=== PATIENT | male | born 1935 | race Caucasian/White ===

== ENCOUNTER 2016-11-07 11:30 | Emergency (ER) | payer OTHER ==
[~2016-11-07] VITALS: Ht 188 cm; Wt 116.9 kg
[~2016-11-07 11:30] MED LIST: ASPEC325 PO; CARB1SOL8 OTB; FLUT0.0529 NAE
[2016-11-07 11:33] VITALS: TEMP 36.4; Ht 188 cm; Wt 116.9 kg
[2016-11-07] MEDS ORDERED: ONDANSETRON INJ 2 MG/ML 2 ML VIAL IV STA (12:04)
[2016-11-07] MEDS ORDERED: SODIUM CHLORIDE 0.9% 1000ML 500 ML IV STA (12:04)
[2016-11-07] MEDS ORDERED: SODIUM CHLORIDE 0.9% 1000ML 1,000 ML IV STA (12:04)
[2016-11-07 12:49] LABS: BASO % 0.4 %; BASO ABS # 0.03 K/uL (0-0.2); COMPLETE YES; EOS % 0.8 %; HEMATOCRIT 37.9 % (42-52); IG% 0.3 %; LYMPH % 21.4 %; LYMPH ABS # 1.52 K/uL (1.2-3.4); MEAN CELL VOLUME 77.2 fL (80-100); MEAN CORPUSCULAR HEMOGLOBIN 25.3 pg (25-34); MEAN CORPUSCULAR HGB CONC 32.7 g/dl (32-36); NEUT % 67.1 %; PLATELET COUNT 296 K/uL (130-400); RED BLOOD COUNT 4.91 M/uL (4.7-6.1); WHITE BLOOD COUNT 7.11 K/uL (4.8-10.8)
[2016-11-07 13:10] LABS: BUN/CREATININE RATIO 11.2 (10-20); CREATININE 1.3 mg/dl (0.60-1.40)
[2016-11-07 13:11] LABS: URINE APPEARANCE CLEAR (CLEAR); URINE BILIRUBIN NEG (NEG); URINE COLOR YELLOW; URINE EPITHELIAL CELL AUTO >30 /lpf (0-5); URINE NITRITE NEG (NEG); URINE SPECIFIC GRAVITY 1.013 (1.000-1.030); UROBILINOGEN NEG (NEG); ZZUR CULT IF INDIC CLEAN CATCH YES
[2016-11-07 13:31] LABS: MANUAL MICROSCOPIC REQUIRED? NO; REVIEW REQ? YES
--- NOTE | 2016-11-07 15:49 | DIAGNOSTIC IMAGING REPORT ---
CT SCAN OF THE ABDOMEN AND PELVIS WITH IV CONTRAST CLINICAL HISTORY: Lower abdominal pain. COMPARISON STUDY: No priors. TECHNIQUE: Following the IV administration of 93 cc of Optiray 320, CT scan of the abdomen and pelvis is performed from the lung bases to the proximal femora. Images are reviewed in the axial, sagittal, and coronal planes. IV contrast was administered without complication. Automated dose control exposure was utilized. CT DOSE: 1388.00 mGy.cm FINDINGS: Lung bases: The heart is enlarged and without pericardial effusion. Pacemaker leads are noted. Emphysematous change is suspected. There is dependent atelectasis. The lung bases are otherwise clear. There is a tiny hiatal hernia. Liver: The contrast-enhanced liver is normal in size and contour. The liver demonstrates diffusely diminished attenuation consistent with hepatic steatosis. There is mild central intrahepatic biliary ductal dilatation. The hepatic veins and portal veins are patent. A 1.5 cm cyst is noted in the left lobe. Gallbladder: Surgically absent noting clips in the gallbladder fossa. Spleen: Normal in size and attenuation. Pancreas: There is moderate fatty atrophy of the pancreas. Adrenal glands: Unremarkable. Kidneys: The contrast enhanced kidneys are atrophic and without hydronephrosis. The kidneys enhance symmetrically. There are numerous bilateral parapelvic cysts, left greater than right. A 2.0 cm exophytic cyst arises from the left lower pole. Additional subcentimeter cortical hypodensities also likely represent cysts but are too small for definitive characterization. Abdominal vasculature: The abdominal aorta is normal in course and caliber noting advanced atherosclerotic calcification. Bowel: There are postoperative changes from right hemicolectomy with ileocolic anastomosis. No bowel obstruction is seen. There are matted loops of mildly thick-walled small bowel with surrounding perienteric stranding and trace interloop fluid seen in the left upper quadrant. This is best seen on axial image #197. There is no pneumatosis intestinalis or portal venous gas. The appendix is surgically absent. Peritoneum: There is no intraperitoneal free air or abdominal ascites. There is a small fat-containing umbilical hernia. Lymphadenopathy: None. Pelvic viscera: The prostate gland is mildly enlarged, measuring up to 5 cm in transverse diameter. The bladder is normal as visualized. There is a moderate fat-containing left inguinal hernia. Trace free fluid is present in the pelvis. Skeletal structures: No lytic or blastic lesions are seen. IMPRESSION: 1. There are matted loops of proximal small bowel in the left upper quadrant which appear mildly thick walled and demonstrates surrounding inflammatory stranding as well as trace interloop fluid. The appearance is suggests a nonspecific enteritis. This could be on an infectious, inflammatory, or ischemic basis. There is no pneumatosis intestinalis or portal venous gas identified. 2. There are postoperative changes from right hemicolectomy with ileocolic anastomosis. No bowel obstruction is seen. 3. Cardiomegaly. 4. Hepatic steatosis. 5. There is trace free fluid in the pelvis, likely on a reactive basis. 6. Additional changes as above. Electronically signed by: Aurelio Wharton M.D. 11/07/2016 3:47 PM Dictated Date/Time: 11/07/2016 3:28 PM
[2016-11-07 16:29] VITALS: BP 123/76; PULSE 86; O2SAT 96
--- NOTE | 2016-11-07 17:27 | EMERGENCY ROOM VISIT NOTE ---
History Report prepared by Sukh: Sher Lane Under the Supervision of: Dr. Aurelio Friedman M.D. First contact with patient: 11:59 Chief Complaint: ABDOMINAL PAIN Stated Complaint: PAIN IN LOWER LEFT STOMACH Nursing Triage Summary: Pt stated that over the last 2 days he has been experincing left lower quadrant pain. The pt stated that the pain is a dull constant pain about a 4 out of 10. Pt stated that the pain worsens after eating and while laying flat. Pt states that when he walks or stretches that the pain lessens. The pt stated that it feels like a hernia he had in the past. Pt had a normal bowel movement this morning and denies N/V. No problems with urination. Pt had been on an antibiotic over the past month and stated that he had dark colored stool while taking the antibiotic. Pt called PCP who referred him to the ED. History of Present Illness The patient is an 81 year old male who presents to the Emergency Room with complaints of intermittent left lower quadrant pain for the past three days. The pain is rated 4/10 in severity. The patient had a bowel movement today that was normal. He denies any urinary symptoms. The patient called Dr. Crane, who referred him to the ED for a CT scan. The patient has never been diagnosed with diverticulosis or diverticulitis. He has a history of polyps s/p colonic resection, which included his appendix. He also has a history of cholecystectomy. The patient has colonoscopies every five years. He takes baby aspirin but is not on any major blood thinners. He denies any history of kidney stones. Source of History: patient Onset: three days Position: abdomen (LLQ) Symptom Intensity: 4/10 Timing: intermittent Associated Symptoms: No diarrhea, No urinary symptoms Review of Systems See HPI for pertinent positives & negatives. A total of 10 systems reviewed and were otherwise negative. Past Medical & Surgical Surgical Problems: (1) History of herniorrhaphy (2) S/P cholecystectomy (3) S/P colon resection Family History Cancer Diabetes mellitus Hypertension Social History Smoking Status: Former Smoker Marital Status: Housing Status: lives with family Current/Historical Medications Scheduled Amlodipine (Norvasc), 5 MG PO DAILY Aspirin (Aspirin), 325 MG PO BID Cholecalciferol (Vitamin D 1000 Unit), 1,000 INTER.UNIT PO QAM Lisinopril (Prinivil), 20 MG PO BID Metformin Hcl (Glucophage), 1,000 MG PO BID Pantoprazole (Protonix), 40 MG PO QAFTERNOON Pioglitazone Hcl (Actos), 45 MG PO DAILY Simvastatin (Zocor), 20 MG PO HS Sitagliptin (Januvia), 100 MG PO QAM Scheduled PRN Eucerin (Eucerin), 1 APPL TOP Fluticasone Propionate (Nasal) (Flonase), 2 SPRAYS AGUEDA DAILY PRN Allergies Coded Allergies: Sulfa Drugs (Verified Allergy, Mild, HIVES, 11/07/16) Physical Exam Vital Signs Date Time Temp Pulse Resp B/P Pulse Ox O2 Delivery O2 Flow Rate FiO2 11/07/16 16:29 86 16 123/76 96 Room Air 11/07/16 15:40 76 18 111/59 94 Room Air 11/07/16 13:07 76 20 104/63 96 Room Air 11/07/16 11:33 36.4 98 18 155/79 94 Room Air Physical Exam GENERAL: Patient is in no acute distress. HEENT: No acute trauma, normocephalic atraumatic, mucous membranes moist, no nasal congestion, no scleral icterus. NECK: No stridor, no adenopathy, no meningismus, trachea is midline. LUNGS: Clear to auscultation bilaterally, no wheeze, no rhonchi, breath sounds equal. HEART: Without murmurs gallops or rubs, regular rate and rhythm. ABDOMEN: Soft, mildly tender to the left lower quadrant, bowel sounds positive, no hernias, no peritonitis. EXTREMITIES: No cyanosis or edema, full range of motion of all the joints without pain or difficulty, no signs for acute trauma. NEUROLOGIC: Oriented x 3, no acute motor or sensory deficits, no focal weakness. SKIN: No rash, no jaundice, no diaphoresis. Medical Decision & Procedures ER Provider Diagnostic Interpretation: CT results as stated below per my review and radiologist interpretation: CT SCAN OF THE ABDOMEN AND PELVIS WITH IV CONTRAST CLINICAL HISTORY: Lower abdominal pain. COMPARISON STUDY: No priors. TECHNIQUE: Following the IV administration of 93 cc of Optiray 320, CT scan of the abdomen and pelvis is performed from the lung bases to the proximal femora. Images are reviewed in the axial, sagittal, and coronal planes. IV contrast was administered without complication. Automated dose control exposure was utilized. CT DOSE: 1388.00 mGy.cm FINDINGS: Lung bases: The heart is enlarged and without pericardial effusion. Pacemaker leads are noted. Emphysematous change is suspected. There is dependent atelectasis. The lung bases are otherwise clear. There is a tiny hiatal hernia. Liver: The contrast-enhanced liver is normal in size and contour. The liver demonstrates diffusely diminished attenuation consistent with hepatic steatosis. There is mild central intrahepatic biliary ductal dilatation. The hepatic veins and portal veins are patent. A 1.5 cm cyst is noted in the left lobe. Gallbladder: Surgically absent noting clips in the gallbladder fossa. Spleen: Normal in size and attenuation. Pancreas: There is moderate fatty atrophy of the pancreas. Adrenal glands: Unremarkable. Kidneys: The contrast enhanced kidneys are atrophic and without hydronephrosis. The kidneys enhance symmetrically. There are numerous bilateral parapelvic cysts, left greater than right. A 2.0 cm exophytic cyst arises from the left lower pole. Additional subcentimeter cortical hypodensities also likely represent cysts but are too small for definitive characterization. Abdominal vasculature: The abdominal aorta is normal in course and caliber noting advanced atherosclerotic calcification. Bowel: There are postoperative changes from right hemicolectomy with ileocolic anastomosis. No bowel obstruction is seen. There are matted loops of mildly thick-walled small bowel with surrounding perienteric stranding and trace interloop fluid seen in the left upper quadrant. This is best seen on axial image #197. There is no pneumatosis intestinalis or portal venous gas. The appendix is surgically absent. Peritoneum: There is no intraperitoneal free air or abdominal ascites. There is a small fat-containing umbilical hernia. Lymphadenopathy: None. Pelvic viscera: The prostate gland is mildly enlarged, measuring up to 5 cm in transverse diameter. The bladder is normal as visualized. There is a moderate fat-containing left inguinal hernia. Trace free fluid is present in the pelvis. Skeletal structures: No lytic or blastic lesions are seen. IMPRESSION: 1. There are matted loops of proximal small bowel in the left upper quadrant which appear mildly thick walled and demonstrates surrounding inflammatory stranding as well as trace interloop fluid. The appearance is suggests a nonspecific enteritis. This could be on an infectious, inflammatory, or ischemic basis. There is no pneumatosis intestinalis or portal venous gas identified. 2. There are postoperative changes from right hemicolectomy with ileocolic anastomosis. No bowel obstruction is seen. 3. Cardiomegaly. 4. Hepatic steatosis. 5. There is trace free fluid in the pelvis, likely on a reactive basis. 6. Additional changes as above. Electronically signed by: Aurelio Wharton M.D. 11/07/2016 3:47 PM Laboratory Results 11/07/16 12:30 Red Blood Count 4.91, Mean Corpuscular Volume 77.2, Mean Corpuscular Hemoglobin 25.3, Mean Corpuscular Hemoglobin Concent 32.7, Mean Platelet Volume 10.0, Neutrophils (%) (Auto) 67.1, Lymphocytes (%) (Auto) 21.4, Monocytes (%) (Auto) 10.0, Eosinophils (%) (Auto) 0.8, Basophils (%) (Auto) 0.4, Neutrophils # (Auto ) 4.77, Lymphocytes # (Auto) 1.52, Monocytes # (Auto) 0.71, Eosinophils # (Auto ) 0.06, Basophils # (Auto) 0.03 11/07/16 12:30 Test 11/07/16 12:30 11/07/16 12:38 White Blood Count 7.11 K/uL (4.8-10.8) Red Blood Count 4.91 M/uL (4.7-6.1) Hemoglobin 12.4 g/dL (14.0-18.0) Hematocrit 37.9 % (42-52) Mean Corpuscular Volume 77.2 fL (80-100) Mean Corpuscular Hemoglobin 25.3 pg (25-34) Mean Corpuscular Hemoglobin Concent 32.7 g/dl (32-36) Platelet Count 296 K/uL (130-400) Mean Platelet Volume 10.0 fL (7.4-10.4) Neutrophils (%) (Auto) 67.1 % Lymphocytes (%) (Auto) 21.4 % Monocytes (%) (Auto) 10.0 % Eosinophils (%) (Auto) 0.8 % Basophils (%) (Auto) 0.4 % Neutrophils # (Auto) 4.77 K/uL (1.4-6.5) Lymphocytes # (Auto) 1.52 K/uL (1.2-3.4) Monocytes # (Auto) 0.71 K/uL (0.11-0.59) Eosinophils # (Auto) 0.06 K/uL (0-0.5) Basophils # (Auto) 0.03 K/uL (0-0.2) RDW Standard Deviation 46.0 fL (36.4-46.3) RDW Coefficient of Variation 16.4 % (11.5-14.5) Immature Granulocyte % (Auto) 0.3 % Immature Granulocyte # (Auto) 0.02 K/uL (0.00-0.02) Anion Gap 8.0 mmol/L (3-11) Est Creatinine Clear Calc Drug Dose 61.6 ml/min Estimated GFR () 59.7 Estimated GFR (Non- 51.5 BUN/Creatinine Ratio 11.2 (10-20) Calcium Level 9.0 mg/dl (8.5-10.1) Total Bilirubin 0.6 mg/dl (0.2-1) Aspartate Amino Transf (AST/SGOT) 15 U/L (15-37) Alanine Aminotransferase (ALT/SGPT) 19 U/L (12-78) Alkaline Phosphatase 63 U/L (45-117) Total Protein 7.1 gm/dl (6.4-8.2) Albumin 3.5 gm/dl (3.4-5.0) Globulin 3.6 gm/dl (2.5-4.0) Albumin/Globulin Ratio 1.0 (0.9-2) Lipase 119 U/L (73-393) Urine Color YELLOW Urine Appearance CLEAR (CLEAR) Urine pH 5.0 (4.5-7.5) Urine Specific [place] 1.013 (1.000-1.030) Urine Protein TRACE (NEG) Urine Glucose (UA) NEG (NEG) Urine Ketones NEG (NEG) Urine Occult Blood 3+ (NEG) Urine Nitrite NEG (NEG) Urine Bilirubin NEG (NEG) Urine Urobilinogen NEG (NEG) Urine Leukocyte Esterase MODERATE (NEG) Urine WBC (Auto) >30 /hpf (0-5) Urine RBC (Auto) >30 /hpf (0-4) Urine Hyaline Casts (Auto) 5-10 /lpf (0-5) Urine Epithelial Cells (Auto) >30 /lpf (0-5) Urine Bacteria (Auto) NEG (NEG) Urine Renal Epithelial Cells /lpf (0-5) Laboratory results reviewed by me. Medications Administered Medications (Trade) Dose Ordered Sig/Kobi Route Start Time Stop Time Status Last Admin Dose Admin Sodium Chloride (Nss 1000ml) 500 ml @ 999 mls/hr Q31M STAT IV 11/07/16 12:04 11/07/16 12:34 DC 11/07/16 12:04 999 MLS/HR Ondansetron HCl 4 mg 4 mg NOW STAT IV 11/07/16 12:04 11/07/16 12:08 DC 11/07/16 12:04 4 MG Sodium Chloride (Nss 1000ml) 1,000 ml @ 200 mls/hr Q5H STAT IV 11/07/16 12:04 11/07/16 17:03 DC 11/07/16 13:05 200 MLS/HR ED Course 1204: The patient was evaluated in room C12b. A complete history and physical exam was performed. 1204: NSS 1000 ml @ 200 mls/hr, Zofran 4 mg IV, NSS 500 ml @ 999 mls/hr. 1610: Discussed the CT findings with Dr. Washington, Surgeon. The patient can go home if he is feeling well. 1615: Reassessed the patient. Discussed the findings with him. He verbalized understanding and agreement of the treatment plan. The patient is ready for discharge. Medical Decision Differential diagnosis includes diverticulitis, hernia, bowel obstruction, musculoskeletal pain, renal colic, UTI. There is no leukocytosis or concerning anemia. No significant electrolyte abnormality, kidney failure, hepatitis or pancreatitis. Urinalysis shows contamination, urine culture is pending. Abdominal and pelvis CT shows some inflamed loops of bowel consistent with a possible enteritis. There is no bowel obstruction, no abscess, no diverticulitis. Patient was given IV saline, IV Zofran, he did not want anything for pain. He is hungry and would like to eat, he is in no significant distress. On exam, there was no peritonitis. The patient was not febrile or toxic. I discussed the case with the on-call surgeon. The patient is being discharged on a simple, bland diet. [id number] pain medication was advised. He will see his doctor in follow-up in a few days. He can return here for escalating pain, fever or vomiting. The cause for the CT findings is not completely clear but I do think the findings could explain his discomfort. Consults Time Called: 1605 Consulting Physician: Dr. Washington, Surgeon Returned Call: [phone]: Discussed the CT findings with Dr. Washington, Surgeon. The patient can go home if he is feeling well. Impression Primary Impression: LLQ abdominal pain Scribe Attestation The scribe's documentation has been prepared under my direction and personally reviewed by me in its entirety. I confirm that the note above accurately reflects all work, treatment, procedures, and medical decision making performed by me. Departure Information Dispostion Home / Self-Care Referrals Breezy Crane III, M.D. (PCP) Forms HOME CARE DOCUMENTATION FORM, IMPORTANT VISIT INFORMATION Patient Instructions My [facility] Additional Instructions bland diet---crackes, toast, soap, gatorade tylenol for pain rest return for fever, worsening pain, vomiting follow with Dr. Crane thursday or thursday lab testing and imaging today was ok
[2017-05-24] MEDS ORDERED: SKINCRE34 TOP (09:22)
[2017-05-24] MEDS ORDERED: METF1000 PO (09:22)
[2017-05-24] MEDS ORDERED: ACT/45 PO (09:22)
[2017-05-24] MEDS ORDERED: PANT1TAB48 PO (09:22)
[2017-05-24] MEDS ORDERED: CHOL100027 PO (09:22)
[2017-05-24] MEDS ORDERED: LISI20TA3 PO (09:22)
[2017-05-24] MEDS ORDERED: SITA1TAB27 PO (09:22)
[2017-05-24] MEDS ORDERED: SIMV20TA5 PO (09:22)
[2017-05-25] MEDS ORDERED: CEPH500C2 PO (09:51)
[2017-05-25] MEDS ORDERED: RXC5 PO (09:51)
== END 2016-11-07 16:40 | disposition home or self-care (01) ==
LOC: C.EDB 11:31 → C.EDC 16:40
DX: R10.32 Left lower quadrant pain (principal); Z86.010 Personal history of colon polyps; Z87.891 Personal history of nicotine dependence; Z90.49 Acquired absence of other specified parts of digestive tract; Z98.890 Other specified postprocedural states; Z82.49 Family history of ischemic heart disease and other diseases of the circulatory system; Z83.3 Family history of diabetes mellitus; Z79.82 Long term (current) use of aspirin

== ENCOUNTER 2017-05-24 14:06 | Observation (INO) | payer OTHER ==
[~2017-05-24] VITALS: Ht 188 cm; Wt 106.0 kg
[~2017-05-24 14:06] MED LIST changes: +ACT/45 PO; -CARB1SOL8 OTB; +CHOL100027 PO; +LISI20TA3 PO; +METF1000 PO; +PANT1TAB48 PO; +SIMV20TA5 PO; +SITA1TAB27 PO; +SKINCRE34 TOP
[2017-05-24] MEDS ORDERED: AMLO-110 PO (14:53)
[2017-05-24 14:59] LABS: BASO % 0.2 %; BASO ABS # 0.02 K/uL (0-0.2); COMPLETE YES; EOS % 2.2 %; IG% 0.2 %; LYMPH % 35.2 %; LYMPH ABS # 2.86 K/uL (1.2-3.4); MEAN CELL VOLUME 75.6 fL (80-100); MEAN CORPUSCULAR HEMOGLOBIN 24.4 pg (25-34); MEAN CORPUSCULAR HGB CONC 32.2 g/dl (32-36); NEUT % 53.2 %; PLATELET COUNT 301 K/uL (130-400); RED BLOOD COUNT 4.76 M/uL (4.7-6.1); WHITE BLOOD COUNT 8.12 K/uL (4.8-10.8)
[2017-05-24 15:10] LABS: BUN/CREATININE RATIO 11.7 (10-20); CALCIUM 8.8 mg/dl (8.5-10.1); CREATININE 1.3 mg/dl (0.60-1.40); POTASSIUM 4.3 mmol/L (3.5-5.1)
--- NOTE | 2017-05-24 15:10 | EMERGENCY ROOM VISIT NOTE ---
ED Visit Note First contact with patient: 14:18 Chief complaint: Left thumb and left long finger lacerations HPI: This 82-year-old white male presents for evaluation of a laceration on his left long finger and his left thumb. The patient was using a table saw today and accidentally put his hand against the blade. He sustained a partial amputation of his thumb at the MCP joint. He also sustained a small laceration over the dorsum of his long finger at the distal phalanx. Bleeding was controlled with pressure. He notes numbness in the thumb. No numbness, tingling, or loss of motion in the long finger. No other complaints. Left hand dominant. Tetanus is believed to be up-to-date. Pain is 6/10. His accompanies him today. Supplemental sheet was reviewed and signed. Previous surgeries: Cholecystectomy, pacemaker placement, total knee replacement , herniorrhaphy Medical history: Significant for diabetes, atrial fibrillation, heart disease, hypertension, osteoarthritis, and easy bruising Current Medications: Reviewed and filed in patient's chart. No blood thinners other than aspirin. Allergies: Sulfa drugs Tetanus: Within 10 years Family History: Significant for heart disease, hypertension, and gallbladder disease. Parents are . Social History: Retired. . No tobacco use, no EtOH use. REVIEW OF SYSTEM: HEENT: No dizziness, visual problems, hearing loss, or tinnitus. There is no difficulty swallowing and no oral lesions are present. LYMPH: No adenopathy. PULMONARY: No cough, shortness of breath, sputum production or hemoptysis. CARDIOVASCULAR: No chest pain, shortness of breath or peripheral edema. GASTROINTESTINAL: No diarrhea, constipation, nausea, vomiting, or abdominal pain. GENITOURINARY: No dysuria, frequency, urgency or nocturia. NEUROLOGIC: No weakness, muscle tenderness, epilepsy or history of neurological problems. MUSCULOSKELETAL: No history of joint tenderness/swelling. Positive history of arthritis and arthralgias. SKIN: No rashes or lesions. PSYCHIATRIC: No history of depression or mental illness. ENDOCRINE: No history of thyroid disorders, or abnormal hair growth. Diabetic. Physical Exam: Vitals: Afebrile. Reviewed and filed in patient's chart General: Well-developed, well-nourished, elderly white male, in no acute distress. Obvious discomfort. He is sitting on the bed. Alert and oriented. Skin: Warm and dry with good turgor. No rashes. No ecchymosis or erythema. The patient is not diaphoretic. No abrasions. The patient has a 4 cm laceration present at the base of his left thumb. His metacarpal head is exposed. The thumb is hanging in a flexed position due to a small skin bridge. Musculoskeletal: Patient has a laceration through the MCP joint of the thumb. Bone is exposed. Joint is exposed. There is no function to the thumb for flexion or extension. Neurologic: Gross sensation is intact across the hand as well as the distal tip of the thumb. Data: Radiographic imaging obtained today of the left hand shows dislocation of the MCP joint of the thumb at the level of the laceration. Impression: Left thumb near amputation at the MCP joint. Left long finger Laceration Plan: Patient was educated regarding today's findings. Conservative care measures were discussed. IV was established. Labs were obtained. Preoperative EKG was obtained. Patient will require exploration in the ER to see if the thumb is salvageable or if he will have an amputation. Long finger will also be cleansed and explored there. He was offered pain medication. He declined at this time. He was given Ancef 2 g IV prior to going to the OR. Dr. Mcneal was consulted. He did come to the ED to evaluate the patient. Please see his dictation for final management. Patient remained stable while in the ED. He remained nothing by mouth. Problem List Surgical Problems: (1) History of herniorrhaphy Status: Resolved (2) S/P cholecystectomy Status: Resolved (3) S/P colon resection Status: Resolved Current/Historical Medications Scheduled Amlodipine (Norvasc), 5 MG PO DAILY Aspirin (Aspirin), 325 MG PO BID Cholecalciferol (Vitamin D 1000 Unit), 1,000 INTER.UNIT PO QAM Lisinopril (Prinivil), 20 MG PO BID Metformin Hcl (Glucophage), 1,000 MG PO BID Pantoprazole (Protonix), 40 MG PO QAFTERNOON Pioglitazone Hcl (Actos), 45 MG PO DAILY Simvastatin (Zocor), 20 MG PO HS Sitagliptin (Januvia), 100 MG PO QAM Scheduled PRN Eucerin (Eucerin), 1 APPL TOP Fluticasone Propionate (Nasal) (Flonase), 2 SPRAYS AGUEDA DAILY PRN Allergies Coded Allergies: Sulfa Drugs (Verified Allergy, Mild, HIVES, 11/07/16) Vital Signs Date Time Temp Pulse Resp B/P (MAP) Pulse Ox O2 Delivery O2 Flow Rate FiO2 05/24/17 14:15 36.6 96 18 163/78 95 Laboratory Results 05/24/17 14:40 Red Blood Count 4.76, Mean Corpuscular Volume 75.6, Mean Corpuscular Hemoglobin 24.4, Mean Corpuscular Hemoglobin Concent 32.2, Mean Platelet Volume 10.0, Neutrophils (%) (Auto) 53.2, Lymphocytes (%) (Auto) 35.2, Monocytes (%) (Auto) 9.0, Eosinophils (%) (Auto) 2.2, Basophils (%) (Auto) 0.2, Neutrophils # (Auto) 4.31, Lymphocytes # (Auto) 2.86, Monocytes # (Auto) 0.73, Eosinophils # (Auto) 0.18, Basophils # (Auto) 0.02 Test 05/24/17 14:40 White Blood Count 8.12 K/uL (4.8-10.8) Red Blood Count 4.76 M/uL (4.7-6.1) Hemoglobin 11.6 g/dL (14.0-18.0) Hematocrit 36.0 % (42-52) Mean Corpuscular Volume 75.6 fL (80-100) Mean Corpuscular Hemoglobin 24.4 pg (25-34) Mean Corpuscular Hemoglobin Concent 32.2 g/dl (32-36) Platelet Count 301 K/uL (130-400) Mean Platelet Volume 10.0 fL (7.4-10.4) Neutrophils (%) (Auto) 53.2 % Lymphocytes (%) (Auto) 35.2 % Monocytes (%) (Auto) 9.0 % Eosinophils (%) (Auto) 2.2 % Basophils (%) (Auto) 0.2 % Neutrophils # (Auto) 4.31 K/uL (1.4-6.5) Lymphocytes # (Auto) 2.86 K/uL (1.2-3.4) Monocytes # (Auto) 0.73 K/uL (0.11-0.59) Eosinophils # (Auto) 0.18 K/uL (0-0.5) Basophils # (Auto) 0.02 K/uL (0-0.2) RDW Standard Deviation 48.6 fL (36.4-46.3) RDW Coefficient of Variation 17.5 % (11.5-14.5) Immature Granulocyte % (Auto) 0.2 % Immature Granulocyte # (Auto) 0.02 K/uL (0.00-0.02) Departure Information Referrals Breezy Crane III, M.D. (PCP) Patient Instructions My [facility]
--- NOTE | 2017-05-24 15:22 | DIAGNOSTIC IMAGING REPORT ---
LEFT HAND 3 VIEWS CLINICAL HISTORY: Table saw injury. Partially amputation. FINDINGS: 3 views of left hand are obtained. No prior studies are available for comparison at the time of dictation. The skeletal structures are osteopenic. There is a comminuted and distracted fracture through the midshaft of the first distal phalanx with overlying soft tissue edema/injury and foci of CT scan as. There is dislocation at the first metacarpophalangeal joint with overriding of the bony structures. No additional fracture is identified. Osteoarthritic change is present at the first carpometacarpal articulation of the interphalangeal joints. IMPRESSION: 1. There is a comminuted and distracted fracture through the midshaft of the first distal phalanx with overlying soft tissue injury. 2. No radiodense foreign body is seen. 3. There is dislocation at the first metacarpophalangeal joint with overriding of the bony structures. 4. Osteopenia and arthritic change as above. Electronically signed by: Aurelio Wharton M.D. 05/24/2017 3:20 PM Dictated Date/Time: 05/24/2017 3:18 PM
[2017-05-24] MEDS ORDERED: ASPI81TA28 PO (15:23)
[2017-05-24] MEDS ORDERED: FLUT0.15 NAE (15:23)
[2017-05-24] MEDS ORDERED: BUPIVACAINE 0.5 % 5 MG/1 ML MPF 30ML VIAL ONE (16:38)
[2017-05-24] MEDS ORDERED: BACITRACIN 50000 UNIT VIAL ONE (16:38)
[2017-05-24] MEDS ORDERED: BUPIVACAINE/EPINEPHRINE 0.5% MPF 1:200,000 10 ML VIAL ONE (16:38)
[2017-05-24] MEDS ORDERED: ATROPINE SULFATE 0.1 MG/ML 5ML SYR IV PRN (16:45)
[2017-05-24] MEDS ORDERED: ONDANSETRON INJ 2 MG/ML 2 ML VIAL IV PRN ×2 (16:45→18:45)
[2017-05-24] MEDS ORDERED: EpHEDrine SULFATE INJ 50 MG/ML AMP IV PRN (16:45)
[2017-05-24] MEDS ORDERED: FENTANYL CITRATE INJ 50 MCG/1 ML 2 ML VIAL IV PRN (16:45)
[2017-05-24] MEDS ORDERED: HYDROmorphone INJ 1 MG/ML SYR IV PRN (16:45)
[2017-05-24] MEDS ORDERED: MEPERIDINE HCL 25 MG/ML CARP IV PRN (16:45)
[2017-05-24] MEDS ORDERED: LABETALOL HCL IV 5 MG/ML 20ML IV PRN (16:45)
[2017-05-24] MEDS ORDERED: FENTANYL CITRATE INJ 50 MCG/1 ML 2 ML VIAL ONE ×3 (16:56→18:10)
[2017-05-24] MEDS ORDERED: PROPOFOL IV EMULSION 10 MG/ML 20 ML VIAL IV ONE (18:08)
[2017-05-24] MEDS ORDERED: ONDANSETRON INJ 2 MG/ML 2 ML VIAL ONE (18:08)
[2017-05-24] MEDS ORDERED: LIDOCAINE HCL 2% 2 ML VIAL (20MG/ML) ONE (18:08)
--- NOTE | 2017-05-24 18:32 | HISTORY & PHYSICAL EXAMINATION ---
DATE OF CONSULTATION: 05/24/2017 CHIEF COMPLAINT: Partial amputation of the right thumb. HISTORY OF PRESENT ILLNESS: Dave is an 82-year-old male who presents with a laceration on his left long finger in his left thumb. His left thumb has an injury, right at the nail plate as well as the MCP joint. It is rather significant injury at the MCP joint, the condyle of the metacarpals exposed through the skin and there is complete volar subluxation of the entire thumb. He was running a table saw earlier today making something for his granddaughter when the board slipped out on him and he ended up cutting his left thumb. He is left hand dominant and he is an avid golfer. He presented to the Emergency Room today with family. X-rays were done and the orthopedics was consulted for evaluation and treatment. PAST MEDICAL HISTORY: Significant for diabetes, atrial fibrillation, heart disease, hypertension, and osteoarthritis. PAST SURGICAL HISTORY: Significant for cholecystectomy, pacemaker placement, total knee arthroplasty and herniorrhaphy. MEDICATIONS: Include Norvasc 5 mg daily, aspirin 325 mg twice a day, vitamin D 1000 units daily, Flonase 2 sprays as needed, Prinivil 20 mg twice a day, Glucophage 1000 mg twice a day, Protonix 40 mg daily, Actos 45 mg daily, Zocor 20 mg at night, and Januvia 100 mg daily. ALLERGIES: SULFA. FAMILY HISTORY: Noncontributory. SOCIAL HISTORY: He is retired, , lives in a house. REVIEW OF SYSTEMS: He complains of left hand pain and all other pertinent review of systems is negative. PHYSICAL EXAMINATION: There is a large transverse laceration directly over the MCP joint of his left thumb. There is complete volar subluxation of the proximal phalanx. The condyle of the MCP joint is exposed through the skin. He also has a nail plate injury and the nail plate of his left thumb is almost completely avulsed off the nail bed. I did test feeling of his thumb with a sharp paperclip and he did have full feeling on both the dorsal, radial and ulnar nerves as well as the volar radial and ulnar nerves. His thumb also pinked up to palpation. There is a small laceration over the left index finger. IMAGING: X-rays reviewed do show a fracture of the condyle and a transverse fracture of the distal phalanx. There is complete volar subluxation at the MCP joint. IMPRESSION: Partial amputation of the left thumb. PLAN: We will take him to the operating room and do an irrigation and debridement. I will see what I can do to save his thumb. I told him that I may be able to repair it or he may require an amputation; however, I did explain to him and his family the most likely scenario will be that I can save his thumb for now and send to a hand specialist and to see if anything else can be done optimize being able to keep his thumb. Will take him to the OR immediately.
--- NOTE | 2017-05-24 18:41 | [facility] Post Operative Brief Note ---
Immediate Operative Summary Operative Date May 24, 2017. Pre-Operative Diagnosis Left thumb near amputation at the metacarpophalangeal joint. Left long finger Laceration Post-Operative Diagnosis Left thumb near amputation at the metacarpophalangeal joint. Left long finger Laceration Procedure(s) Performed Incision and Drainage, Open Reduction Internal Fixation, Tendon Repair, Closure of Complex Laceration of Left Thumb, Nail Plate Avulsion Surgeon Dr. Mcneal Traffic Rate Clerk Surgeon(s) none Estimated Blood Loss 5 cc Findings as above Specimens none per surgeon Complication(s) None Disposition Recovery Room / PACU
[2017-05-24] MEDS ORDERED: METOCLOPRAMIDE HCL INJ 5 MG/ML 2 ML VIAL IV PRN (18:45)
[2017-05-24] MEDS ORDERED: FLUTICASONE PROPIONATE NA SPR 16 GM BTL NAE PRN (18:45)
[2017-05-24] MEDS ORDERED: MoRPHine SULFATE 2 MG/ML CARP IV PRN (18:45)
--- NOTE | 2017-05-24 18:59 | Anesthesiology Progress Note ---
Anesthesia Post Op Note Date & Time May 24, 2017 at 18:59 Vital Signs Pain Intensity: 0 Vital Signs Past 12 Hours Date Time Temp Pulse Resp B/P (MAP) Pulse Ox O2 Delivery O2 Flow Rate FiO2 05/24/17 18:55 77 16 134/86 98 Nasal Cannula 2 05/24/17 18:45 78 16 139/63 98 Nasal Cannula 4 05/24/17 18:35 82 16 128/63 98 Nasal Cannula 4 05/24/17 18:29 36.5 82 16 134/78 98 Nasal Cannula 4 05/24/17 16:20 77 20 150/76 96 05/24/17 14:15 36.6 96 18 163/78 95 Notes Mental Status: alert / awake / arousable, participated in evaluation Pt Amnestic to Procedure: Yes Nausea / Vomiting: adequately controlled Pain: adequately controlled Airway Patency, RR, SpO2: stable & adequate BP & HR: stable & adequate Hydration State: stable & adequate Anesthetic Complications: no major complications apparent
[2017-05-24 19:30] VITALS: BP 157/81; PULSE 89; TEMP 36.8; O2SAT 96
[2017-05-24 19:59] VITALS: BP 146/73; PULSE 81; TEMP 36.8; O2SAT 96; Ht 188 cm; Wt 106.0 kg
[2017-05-24 20:00] VITALS: BP 146/73; PULSE 83; TEMP 36.8; O2SAT 98
[2017-05-24 20:30] VITALS: BP 166/84; PULSE 89; TEMP 36.6; O2SAT 95
[2017-05-24] MEDS: POTASSIUM CHLORIDE INJ 10 MEQ in SODIUM CHLORIDE 0.9% 1000ML 1,000 ML IV SCH (20:38)
[2017-05-24] MEDS: METFORMIN HCL 500 MG TAB PO SCH (20:38)
[2017-05-24] MEDS: LISINOPRIL 20 MG TAB PO SCH (20:38)
[2017-05-24] MEDS ORDERED: SIMVASTATIN 20 MG TAB PO SCH (21:00)
[2017-05-24 21:24] VITALS: BP 157/74; PULSE 75; TEMP 36.6; O2SAT 97
[2017-05-24 22:30] VITALS: BP 151/71; PULSE 84; TEMP 36.8; O2SAT 95
--- NOTE | 2017-05-24 23:20 | OPERATIVE REPORT ---
DATE OF OPERATION: 05/24/2017 PREOPERATIVE DIAGNOSIS: Complex laceration of the left metacarpophalangeal joint with metacarpal fracture and tendon involvement. POSTOPERATIVE DIAGNOSIS: Same. PROCEDURE: Irrigation and debridement of the left thumb with ORIF of the left thumb metacarpal, repair of the extensor tendon, removal of the nail plate and repair of the nail bed, and closure of a complex laceration to the left thumb. SURGEON: Dr. Jay Mcneal. ARMED CUSTOM PROTECTION OFFICER: None. ANESTHESIA: General. COMPLICATION: None. CONDITION: Stable to PACU. IMPLANTS USED: I used a single Synthes 2.0 millimeter orthognathic screw. INDICATIONS: Dave is a pleasant 82-year-old male who suffered a table saw injury to his left thumb today. He came to the Emergency Room and the metacarpal head was exposed and split down the center. He was given 2 grams of Ancef in the Emergency Room and brought directly to the operating room. The operative extremity was identified and signed. He was put under general anesthetic. The left hand was prepped and draped in sterile fashion, timeout was done, and the patient and operative extremity was properly identified. The wound was first debrided and then irrigated with 3 liters of normal saline solution with bacitracin. The wound did not appear very dirty. The metacarpal was repaired with direct visualization at the articular side. A clamp was used to hold the metacarpal condyles together and a single 2.0 mm Synthes were orthognathic screw was placed. This gave good fixation of the condyle, I was able to flex and extend the thumb without any displacement. The laceration of the extensor tendon seemed to go almost between the extensor pollicis longus and the extensor pollicis brevis. It seemed to split mostly the dorsal monroy. A 4.0 mm FiberWire suture was used in interrupted fashion to repair the extensor monroy. It appeared that the brevis was still intact and the longus was intact. The wound was once again irrigated and the complex laceration was closed with 4-0 nylon suture. Attention was then turned to the nail plate. The nail plate was carefully removed. There was some exposed bone of the distal phalanx. Some sutures were placed in the distal pulp of the thumb and then the nail plate was cleaned thoroughly and placed underneath the eponychium and sutured down. There was also a very small laceration on the dorsal aspect of the left middle finger and that was closed with a single suture. The tourniquet was then deflated. I was able to get good bleeding from the end of the nail plate. The left thumb was then dressed with Xeroform, 4 x 4's, Webril and a 3-inch Orthoglass splint. He was then extubated, transferred to a [facility] and taken to the postanesthesia care unit in stable condition. He tolerated the procedure well. The local hand surgeon was notified. I will keep him on IV antibiotics for the next x24 hours at the hospital and then he can follow up with a hand surgeon in 2 days for examination and further treatment. I attest to the content of the Intraoperative Record and any orders documented therein. Any exception s are noted below.
[2017-05-24] MEDS: CEFAZOLIN IV 2,000 MG in DEXTROSE 5% 50ML 50 ML IV SCH (23:43)
[2017-05-25] MEDS ORDERED: IV FLUIDS COMPLETED PRN (00:15)
[2017-05-25] MEDS: OXYCODONE HCL IR 5 MG TAB (IMMEDIATE RELEASE) PO PRN ×3 (01:39→10:40)
[2017-05-25 04:02] VITALS: BP 152/76; PULSE 83; TEMP 36.9; O2SAT 92
[2017-05-25] MEDS: POTASSIUM CHLORIDE INJ 10 MEQ in SODIUM CHLORIDE 0.9% 1000ML 1,000 ML IV SCH (05:52)
[2017-05-25] MEDS ORDERED: CEFAZOLIN IV 2,000 MG/60 ML D5W IV ONE (06:00)
[2017-05-25 06:50] VITALS: BP 132/66; PULSE 77; TEMP 37; O2SAT 91
[2017-05-25] MEDS: CEFAZOLIN IV 2,000 MG in DEXTROSE 5% 50ML 50 ML IV SCH (08:29)
[2017-05-25] MEDS: METFORMIN HCL 500 MG TAB PO SCH (08:30)
[2017-05-25] MEDS: LISINOPRIL 20 MG TAB PO SCH (08:32)
[2017-05-25] MEDS ORDERED: AMLODIPINE BESYLATE 5 MG TAB PO SCH (09:00)
[2017-05-25] MEDS ORDERED: ASPIRIN 81 MG ECTAB PO SCH (09:00)
[2017-05-25] MEDS ORDERED: MULTIVITAMIN TAB PO SCH (09:00)
[2017-05-25] MEDS ORDERED: SITAGLIPTIN 100 MG TAB PO SCH (09:00)
[2017-05-25] MEDS ORDERED: PANTOprazole SOD 40 MG TAB PO SCH (09:00)
[2017-05-25] MEDS ORDERED: CHOLECALCIFEROL 1000 INTER.UNIT TAB PO SCH (09:00)
[2017-05-25] MEDS ORDERED: PIOGLITAZONE TAB 15 MG TAB PO SCH (09:00)
[2017-05-25] MEDS ORDERED: RXC5 PO (09:51)
[2017-05-25] MEDS ORDERED: CEPH500C2 PO (09:51)
--- NOTE | 2017-05-25 09:53 | Discharge Instructions ---
Discharge Instructions Date of Service May 25, 2017. Admission Reason for Admission: Laceration Of Thumb With Damage To Nail Discharge Discharge Diagnosis / Problem: Complex laceration Left Thumb Discharge Goals Goal(s): Decrease discomfort, Improve function Activity Recommendations Activity Limitations: as noted below Keep splint clean and dry until follow up . Instructions / Follow-Up Instructions / Follow-Up [facility] Patient's current hospital diet: Regular Diet Discharge Diet Recommended Diet: Regular Diet Procedures Procedures Performed: Incision and Drainage, Open Reduction Internal Fixation, Tendon Repair, Closure of Complex Laceration of Left Thumb, Nail Plate Avulsion Pending Studies Studies pending at discharge: no Medical Emergencies . Who to Call and When: Medical Emergencies: If at any time you feel your situation is an emergency, please call 911 immediately. . Non-Emergent Contact Non-Emergency issues call your: Surgeon Call Non-Emergent contact if: wound has increased drainage, wound has increased redness . "Provider Documentation" section prepared by Jay Mcneal. . VTE Core Measure Inpt VTE Proph given/why not?: Treatment not indicated
[2017-05-25 10:16] VITALS: BP 132/66; PULSE 77; TEMP 37; O2SAT 91
--- NOTE | 2017-05-25 10:25 | PROGRESS NOTE ---
DATE: 05/25/2017 CHIEF COMPLAINT: Status post repair of complex injury to the left thumb. PROGRESS: Dave was seen and examined at bedside today. Overall, he is doing fairly well and he does not have much pain in the thumb. He has had no acute events overnight. No other complaints. PHYSICAL EXAMINATION: The splint is clean and dry and his other fingers are neurovascularly intact. IMPRESSION: Status post repair of complex injury to the left thumb. PLAN: He just finished his IV Ancef with a second dose. He is going to be discharged to home on oral Keflex 4 times a day for 10 days. He is going to follow up with Dr. Curry, the hand surgeon tomorrow.
--- NOTE | 2017-05-25 10:31 | DISCHARGE SUMMARY ---
DISCHARGE DIAGNOSIS: Complex injury to the left thumb. PROCEDURE: Open irrigation and debridement with ORIF of the metacarpal extensor tendon repair and closure of complex wound including nail plate revision of the left thumb. DISCHARGE INSTRUCTIONS: 1. Keflex 500 mg 4 times a day for 10 days. 2. Oxycodone 5-10 mg every 4 hours as needed for pain. 3. Norvasc 5 mg daily. 4. Aspirin 81 mg daily. 5. Vitamin D 1000 units daily. 6. Eucerin cream as needed. 7. Flonase 2 sprays as needed. 8. Prinivil 20 mg twice a day. 9. Glucophage 1000 mg twice a day. 10. Protonix 40 mg daily. 11. Actos 45 mg daily. 12. Zocor 20 mg daily. 13. Januvia 100 mg daily. 14. Follow up with Dr. Curry tomorrow. 15. Call the office of Dr. Mcneal with any questions or concerns. HOSPITAL COURSE: Ed is an 82-year-old male who injured his left thumb with a table saw yesterday. He came to the Emergency Room and there was a complex injury at the MCP joint of the left thumb. He was taken immediately to the operating room. The thumb was irrigated, the metacarpal was fixed with a single screw, the extensor tendon was repaired and the wound was closed. He was then placed in a splint. He was kept overnight at the hospital for postoperative IV antibiotics. The following day, he was doing well, he was not having much pain in his thumb, the IV antibiotics were finished and he was subsequently discharged with oral antibiotics and the above instructions.
== END 2017-05-25 11:30 | disposition home or self-care (01) ==
LOC: C.EDD 14:31 → C.MSN 18:44 → ENRESERV 19:17
PROVIDERS: ADMIT Orthopaedic Surgery; ATTEND Orthopaedic Surgery
DX: S61.112A Laceration without foreign body of left thumb with damage to nail, initial encounter (principal); S66.222A Laceration of extensor muscle, fascia and tendon of left thumb at wrist and hand level, initial encounter; S62.307B Unspecified fracture of fifth metacarpal bone, left hand, initial encounter for open fracture; S61.213A Laceration without foreign body of left middle finger without damage to nail, initial encounter; W31.2XXA Contact with powered woodworking and forming machines, initial encounter; I48.91 Unspecified atrial fibrillation; I10 Essential (primary) hypertension; E11.9 Type 2 diabetes mellitus without complications; M19.90 Unspecified osteoarthritis, unspecified site; Z79.82 Long term (current) use of aspirin; Z79.84 Long term (current) use of oral hypoglycemic drugs; Z79.899 Other long term (current) drug therapy

== ENCOUNTER 2020-02-03 23:10 | Inpatient (IN) ==
[2020-02-03 23:42] LABS: Basophils # (auto) 0.04 K/uL (0-0.2); Basophils % (auto) 0.5 %; Eosinophils # (auto) 0.19 K/uL (0-0.5); Eosinophils % (auto) 2.5 %; Hematocrit (blood only) 37.6 % (42-52); Hemoglobin 11.9 g/dL (14.0-18.0); Immature Granulocytes # (auto) 0.01 K/uL (0.00-0.02); Immature Granulocytes % (auto) 0.1 %; Lymphocytes # (auto) 2.87 K/uL (1.2-3.4); Lymphocytes % (auto) 38.3 %; Mean Corpuscular Hgb Conc 31.6 g/dL (32-36); Mean Corpuscular Volume 75.8 fL (80-100); Mean Platelet Volume 9.8 fL (7.4-10.4); Monocytes # (auto) 0.82 K/uL (0.11-0.59); Monocytes % (auto) 10.9 %; Neutrophils # (auto) 3.56 K/uL (1.4-6.5); Neutrophils % (auto) 47.7 %; Platelet Count 292 K/uL (130-400); RDW Coefficient of Variation 20.3 % (11.5-14.5); Red Blood Count 4.96 M/uL (4.7-6.1); White Blood Count 7.49 K/uL (4.8-10.8)
--- NOTE | 2020-02-03 23:50 | Emergency Department Note ---
Impression & Plan Acute cerebrovascular accident ED Provider Note NAME: KATIE MCNEIL AGE: 84 SEX: M ARRIVES VIA: Ambulance INFORMANT: Patient ED PROVIDER(S): Emelyn Olson DO CHIEF COMPLAINT: Weakness PLAN: Disposition: Admitted to the [facility] service MEDICAL DECISION MAKING: This is an 84-year-old male patient who presents to the emergency department stating that he had an episode earlier this evening where he felt as if he could not make his legs move. He contacted the [facility] tele-nurse after some time and they directed him here to the emergency department. Upon arrival to the emergency department, the patient's symptoms seem to improve. He had normal strength in his extremities and a normal CT scan of his brain. Overall, the patient was feeling better until he got up from the bed and noted that he seemed to have very little control over his left leg. Again, in the standing position, the patient's muscle strength was rechecked with the assistance of nursing staff but noted that the patient could not stand without assistance on that left lower extremity. The patient was outside the window for TPA as the onset of his symptoms was 8:30 PM and overall upon presentation to the emergency department he had significant improvement in movement of his legs. The case was discussed with the [facility] and he will be admitted to the hospital and have advanced neuro imaging. The patient has a history of atrial fibrillation. He had been taken off of his aspirin previously because of a history of GI bleeding. Triage Nursing notes reviewed and agree them. Prior medical records reviewed Vital Signs: reviewed and remarkable for hypertension Differential diagnosis: TIA, CVA, vertebral artery dissection, orthostasis, hypoglycemia, intracranial hemorrhage, Diagnostics interpreted by me: ECG: AV paced rhythm at 86. No obvious ischemia or ectopy. Cardiac Monitoring: Paced rhythm at 82. No obvious ectopy. Laboratory studies: See below Imaging studies:as per Stat Rad CT head: No intracranial hemorrhage, mass-effect, edema, or acute ischemic infarct. Age-related volume loss. No fracture. Mucosal retention cysts within the right maxillary sinus. HPI: 84/M arrives for evaluation of episode of weakness at home. This is an 84-year-old male patient who was at home watching TV when he turned his head to one side and felt very weak. He felt as if his arms were floating. He describes a sensation that he has never felt before. He stood up from a chair and attempted to move to his couch when he noticed some black spots or blind s pots on the TV and felt extremely weak when he sat down onto his couch. He explains that he could not get his legs to move. After some time, they contacted the [facility] tele-nurse who suggested that they call 911. During my evaluation of the patient, he did complain of some bilateral neck pain which actually seemed to be more in the area of his temporomandibular joint bilaterally. I repositioned the patient's head with his pillow and sat him up more erect and his neck pain resolved. Patient denies ever having an episode like this in the past. He denies being near syncopal. He does explain that he felt as if he was unable to move his legs when he attempted to walk from the chair to the couch ROS: See above HPI for pertinent positives & negatives. A total of 10 systems reviewed and were otherwise negative. PAST MEDICAL HISTORY:See Below PAST SURGICAL HISTORY:See Below FAMILY HISTORY:See Below SOCIAL HISTORY:See Below HOME MEDICATIONS:See list ALLERGIES:Sulfa drug VITALS:Stable PHYSICAL EXAMINATION: HEENT: Head - normocephalic and atraumatic. Pupils are equal, round, and reactive to light. Extraocular eye muscles are intact and sclera are anicteric. Ears - bilaterally patent canals with noninjected tympanic membranes and no evidence of hemotympanum. Nose - moist nasal mucosa without discharge. Mouth - moist buccal mucosa. Oropharynx is nonerythematous and there is no tonsillar exudate or edema noted. Neck: Supple; no JVD or cervical lymphadenopathy. There are no auscultated bruits Heart: Regular rate and rhythm. There is a normal S1 and S2 with no murmurs, clicks, or gallops appreciated. Lungs: Clear to auscultation bilaterally with no wheezes, rales, or rhonchi. Abdomen: Soft, completely nontender, nondistended, with good bowel sounds. There are no palpable pulsatile masses or hepatosplenomegaly. There is no guarding, rigidity, or rebound noted. Extremities: No evidence of cyanosis, clubbing, or edema. There are easily palpable peripheral pulses. Neuro:The patient is awake and alert, oriented to day, time, and place. Muscle strength is 5/5 in all 4 extremities. The patient has equal manager supplier strength and equal pedal push and pull. There are no cerebellar signs. The patient has normal sensation in all 4 extremities ED COURSE: Times/Reassessments: 2315: The patient was evaluated in room A2. A complete history and physical was performed. An order was placed for continuous cardiac monitoring. The patient was in a paced rhythm at 68. An IV lock was initiated and labs were drawn as above. A twelve-lead EKG was obtained as described above. 0045: I reevaluated the patient. He was resting comfortably. His vital signs were stable. He was asymptomatic at this time. They are performing orthostatic vital signs at this time. Nursing staff state that the patient is not orthostatic but are concerned because it seems as if he cannot bear weight on his left leg. I went to the room to reevaluate the patient and rechecked all of his muscle strength in his extremities again while he was in the bed and this was unchanged. Nursing staff helped me stand the patient and he is easily able to flex at both the hip and the knee but cannot stand solely on his left leg or bear his complete weight on his left leg which is not normal for him. The patient was placed safely back in the bed. 0120: I reviewed my concerns with the patient and discussed the case with the [facility] service as they would admit the patient to the hospital. 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 Required: No Beliefs That Will Affect Care: None marital status: Current Living Situation: Spouse current occupational status: retired Other Information That Helps Us Care for You: No Feels Safe at Home: Yes Safety Concerns: Feels Safe At This Time Smoking Status: Former smoker Tobacco Type: cigarettes ; Do You Dip or Chew Tobacco: No ; Second Hand Exposure: Yes (father smoked) ; Hx Alcohol Use: No Hx Substance Use: No Allergies Allergies Allergy/AdvReac Type Severity Reaction Status Date / Time Sulfa (Sulfonamide Allergy Mild HIVES Verified 02/04/20 00:17 Antibiotics) Home Meds Home Medications Medication Instructions Recorded Confirmed Eucerin 1 applic TOPICAL UD PRN 03/15/19 02/04/20 Mucinex DM 1 tab PO BID PRN 03/15/19 02/04/20 albuterol sulfate [ProAir HFA] 2 puff INHALATION Q6H PRN 03/15/19 02/04/20 amlodipine 10 mg PO QAM 03/15/19 02/04/20 cholecalciferol (vitamin D3) 1,000 unit PO QAM 03/15/19 02/04/20 [Vitamin D3] cyanocobalamin (vitamin B-12) 1,000 mcg PO QAM 03/15/19 02/04/20 ferrous sulfate [Iron (ferrous 325 mg PO QAM 03/15/19 02/04/20 sulfate)] fluticasone propionate [Flonase 2 spray INTRANASAL DAILY PRN 03/15/19 02/04/20 Allergy Relief] linagliptin 5 mg PO QAM 03/15/19 02/04/20 lisinopril 20 mg PO BID 03/15/19 02/04/20 metformin 1,000 mg PO BID 03/15/19 02/04/20 pantoprazole 40 mg PO QAM 03/15/19 02/04/20 pioglitazone 45 mg PO QAM 03/15/19 02/04/20 simvastatin 20 mg PO HS 03/15/19 02/04/20 metoprolol succinate 25 mg PO DAILY 02/04/20 02/04/20 trazodone 50 mg PO HS 02/04/20 02/04/20 Results & Data (ED) Vital Signs Vital Signs - 24 hr 02/03/20 23:21 02/03/20 23:26 02/03/20 23:54 Temperature 36.6 C Temperature Source Oral Pulse Rate - Lying Pulse Rate - Sitting Pulse Rate - Standing Pulse Rate 75 Pulse Rate [Bilateral Apical] 68 Respiratory Rate 20 20 Respiratory Effort / Characteristics Non-Labored Respiratory Depth Normal Blood Pressure - Lying Blood Pressure - Sitting Blood Pressure- Standing Blood Pressure 151/75 H Blood Pressure [Right Arm] 147/75 H Blood Pressure Mean 100 Blood Pressure Mean [Right Arm] 99 Pulse Oximetry 97 98 98 Oxygen Delivery Method Room Air Room Air Room Air Sepsis Recent Fever Within 48 Hours No Sepsis Action Taken by Nursing No Action Required 02/04/20 00:39 02/04/20 00:52 02/04/20 01:08 Temperature Temperature Source Pulse Rate - Lying 70 Pulse Rate - Sitting 73 Pulse Rate - Standing 80 Pulse Rate Pulse Rate [Bilateral Apical] 75 74 Respiratory Rate 20 20 Respiratory Effort / Characteristics Respiratory Depth Blood Pressure - Lying 133/56 L Blood Pressure - Sitting 143/71 H Blood Pressure- Standing 138/65 Blood Pressure Blood Pressure [Right Arm] 123/80 131/73 Blood Pressure Mean Blood Pressure Mean [Right Arm] 94 92 Pulse Oximetry 95 95 Oxygen Delivery Method Room Air Sepsis Recent Fever Within 48 Hours Sepsis Action Taken by Nursing 02/04/20 01:51 Temperature Temperature Source Pulse Rate - Lying Pulse Rate - Sitting Pulse Rate - Standing Pulse Rate Pulse Rate [Bilateral Apical] 86 Respiratory Rate 20 Respiratory Effort / Characteristics Respiratory Depth Blood Pressure - Lying Blood Pressure - Sitting Blood Pressure- Standing Blood Pressure Blood Pressure [Right Arm] 143/73 H Blood Pressure Mean Blood Pressure Mean [Right Arm] 96 Pulse Oximetry 97 Oxygen Delivery Method Room Air Sepsis Recent Fever Within 48 Hours Sepsis Action Taken by Nursing Laboratory Data Result diagrams: 02/04/20 05:42 02/04/20 05:42 Lab Results 02/03/20 02/03/20 Range/Units 23:15 23:15 WBC 7.49 (4.8-10.8) K/uL RBC 4.96 (4.7-6.1) M/uL Hgb 11.9 L (14.0-18.0) g/dL Hct 37.6 L (42-52) % MCV 75.8 L (80-100) fL MCH 24.0 L (25-34) pg MCHC 31.6 L (32-36) g/dL RDW Std Deviation 56.0 H (36.4-46.3) fL RDW Coeff of Glenys 20.3 H (11.5-14.5) % Plt Count 292 (130-400) K/uL MPV 9.8 (7.4-10.4) fL Immature Gran % (Auto) 0.1 % Neut % (Auto) 47.7 % Lymph % (Auto) 38.3 % Burke % (Auto) 10.9 % Eos % (Auto) 2.5 % Baso % (Auto) 0.5 % Immature Gran # (Auto) 0.01 (0.00-0.02) K/uL Neut # (Auto) 3.56 (1.4-6.5) K/uL Lymph # (Auto) 2.87 (1.2-3.4) K/uL Burke # (Auto) 0.82 H (0.11-0.59) K/uL Eos # (Auto) 0.19 (0-0.5) K/uL Baso # (Auto) 0.04 (0-0.2) K/uL Echinocytes 1+ Sodium 142 (136-145) mmol/L Potassium 4.1 (3.5-5.1) mmol/L Chloride 112 H (98-107) mmol/L Carbon Dioxide 23 (21-32) mmol/L Anion Gap 7.0 (3-11) BUN 18 (7-18) mg/dl Creatinine 1.23 (0.6-1.4) mg/dl Est Cr Clr Drug Dosing 61.0 ml/min Est GFR ( Amer) 62.5 Est GFR (Non-Af Amer) 54.0 BUN/Creatinine Ratio 14.6 (10-20) Glucose 167 H (70-99) mg/dl Calcium 8.9 (8.5-10.1) mg/dl Total Bilirubin 0.4 (0.2-1) mg/dl AST 14 L (15-37) U/L ALT 21 (12-78) U/L Alkaline Phosphatase 85 (45-117) U/L Total Protein 7.7 (6.4-8.2) gm/dl Albumin 3.8 (3.4-5.0) gm/dl Globulin 3.9 (2.5-4.0) gm/dl Albumin/Globulin Ratio 1.0 (0.9-2) TSH 5.110 H (0.300-4.500) uIu/ml Free T4 1.18 (0.8-1.6) ng/dl Administered Medications Sodium Chloride (Nss 1000ml) 1,000 mls @ 100 mls/hr IV .Q10H DEIRDRE Stop: 02/04/20 11:14 Last Admin: 02/04/20 04:21 Dose: 100 mls/hr Documented by: [id number] Ioversol (Optiray 320 125ml) 118 ml IV ONCE PRN PRN Reason: Interaction Checking Stop: 02/08/20 05:48 Last Admin: 02/04/20 05:49 Dose: 1 ml Documented by: [id number] Discharge Plan Visit Data *Final* Discharge Date/Time: 02/04/20 03:19 Chief Complaint: Weakness Stated Complaint: FEELS HE LOST CONTROL OF HIS EXTREMITIES ED Provider: Emelyn Olson Discharge Problem: Acute cerebrovascular accident Patient Disposition: Admitted As Inpatient Discharge Instructions Interventions: ED Discharge Assessment Last Done: 02/04/20 03:19
[2020-02-03 23:51] LABS: Albumin Level 3.8 gm/dl (3.4-5.0); BUN Creatinine Ratio 14.6 (10-20); Calcium 8.9 mg/dl (8.5-10.1); Est GFR (African American) 62.5; Potassium 4.1 mmol/L (3.5-5.1)
[2020-02-04 00:01] LABS: Bilirubin,Total 0.4 mg/dl (0.2-1); Globulin 3.9 gm/dl (2.5-4.0); Thyroid Stimulating Hormone 5.11 uIu/ml (0.300-4.500); Total Protein 7.7 gm/dl (6.4-8.2)
[2020-02-04 00:14] LABS: T4 Free Thyroxine 1.18 ng/dl (0.8-1.6)
[2020-02-04 00:34] LABS: Echinocytes 1+
[2020-02-04] MEDS ORDERED: NITROGLYCERIN SL 0.4 MG/TAB TAB SL PRN (03:46)
[2020-02-04] MEDS ORDERED: FLUTICASONE PROPIONATE NA SPR 16 GM BTL PRN (03:46)
[2020-02-04] MEDS ORDERED: ONDANSETRON INJ 2 MG/ML 2 ML VIAL IV PRN (03:46)
[2020-02-04] MEDS ORDERED: SODIUM CHLORIDE 0.9% 1000ML 1,000 ML IV SCH (03:46)
[2020-02-04] MEDS ORDERED: PHARMACIST DISCHARGE MED REC CONSULT PRN (03:46)
--- NOTE | 2020-02-04 03:55 | History and Physical Report ---
DATE OF ADMISSION: 02/04/2020 CHIEF COMPLAINT: Weakness. HISTORY OF PRESENT ILLNESS: This is an 84-year-old male with past medical history significant for type 2 diabetes, chronic kidney disease stage III, hyperlipidemia, third-degree AV block status post pacemaker, hypertension, GERD, who lives with his , and was brought in because of weakness in his lower extremity. The patient states he was watching his TV, when he turned his head to one side he felt very weak. He felt his arms were floating and he stood up from the chair in an effort to move to his couch when he noticed blind spots on the TV and felt extremely weak and he could not ambulate, he stayed on his couch. He felt that he could not walk to his car, 911 was called in and he was brought into the ER. His CT of the head is negative. He says symptoms, improved in the ER.On exam his strength is good in extremities. As per the ER, the patient when they tried to check his orthostatics, he stood up, he could not move his left leg, so we were called in for further workup. Currently resting comfortably and hemodynamically stable. Denies any headache. Hard of hearing. No blurred visions. No runny nose, no sore throat, no cough, no difficulty swallowing. Appetite is okay. No chest pain, no shortness of breath, no nausea, no abdominal pain. Normal bowel and bladder movements. No rash, no swelling in the legs. Before this, he used to ambulate fine at home. ALLERGIES: SULFA ANTIBIOTICS. PAST MEDICAL HISTORY: As mentioned above. PAST SURGICAL HISTORY: Colonoscopy, dental surgery, EGD, status post pacemaker, cataract surgery, cholecystectomy, inguinal hernia repair, partial removal of the colon. MEDICATIONS: The patient is on albuterol 2 puffs q. 6 hours p.r.n., amlodipine 10 mg p.o. a.m., vitamin D 1000 units p.o. a.m., vitamin B12 1000 mcg p.o. a.m., ferrous sulfate 325 mg p.o. a.m., Flonase 2 sprays intranasal daily p.r.n., linagliptin 5 mg p.o. a.m., lisinopril 20 mg p.o. b.i.d., metformin 1000 mg p.o. b.i.d., metoprolol succinate 25 mg p.o. daily, Mucinex 1 tablet p.o. b.i.d. p.r.n., Protonix 40 mg p.o. a.m., pioglitazone 45 mg p.o. a.m., simvastatin 20 mg p.o. at bedtime, trazodone 50 mg p.o. at bedtime. FAMILY HISTORY: Significant for mother has heart disorder; father has heart disorder, stroke; brother has hypertension; sister has rheumatoid arthritis. SOCIAL HISTORY: and lives with his . Former smoker, quit in , prior to that smoked 1.5 packs a day for 30 years. No alcohol use, no drug use. REVIEW OF SYSTEMS: As per HPI. Rest of the review of systems negative. PHYSICAL EXAMINATION: GENERAL: The patient is of moderate built, not in acute distress. VITAL SIGNS: Temperature 36.6, pulse 86, respiratory rate 20, blood pressure 143/73, oxygen 97% on room air. HEENT: No pallor, no icterus. Pupils equal, round, reactive to light. Extraocular muscles intact. NECK: No neck masses. Supple. CARDIOVASCULAR: S1, S2 heard, regular rate and rhythm, no murmur, no gallop. RESPIRATORY SYSTEM: Normal AP diameter. No accessory muscle use. No wheezing, no crackles. ABDOMEN: Soft, bowel sounds present, nontender. No distention. CENTRAL NERVOUS SYSTEM: Cranial nerves II-XII grossly intact. Power 5/5 in all extremities. No pronator drift. Coordination of movements normal. Able to lift and hold his lower extremities. Sensation is intact. EXTREMITIES: No edema, no erythema. LABORATORY DATA: WBC 7.4, hemoglobin 11.9, hematocrit 37.6, platelets 292. Sodium 142, potassium 4.1, chloride 112, CO2 of 23, BUN 18, creatinine 1.2, serum glucose 167, calcium 8.9, total bilirubin 0.4, AST 14, ALT 21, alkaline phosphatase 85. TSH 5.1, free T4 1.18. IMAGING DATA: CT of the head, preliminary report, no acute findings. EKG: Atrial sensed ventricular paced rhythm with rate of 86. ASSESSMENT AND PLAN: This is an 84-year-old male who presents with stroke-like symptoms. 1. Stroke-like symptoms around 8:30 p.m. yesterday, on 02/03/2020. The patient felt a funny feeling in his hands like they were floating and he had some blind spots in his vision and also felt weakness in his legs, thought he could not ambulate, but then he came to the ER and almost all his symptoms resolved. Speech is clear, but when ER physician tried to check his orthostatics, it looked like he could not able to move his left lower extremity, but on exam his strength is good in all extremities. CT of the head is unremarkable. Could not do MRI because of his pacemaker. We will do a CTA of the head and neck, echocardiogram ,stroke protocol with PT and OT and speech evaluation and neuro consult in a.m. and started on aspirin. The patient is already on statin. We will follow the lipid profile. Also will repeat CT of the head as per neuro. Closely monitor in the tele floor. 2. Diabetes. Hold his home p.o. medication, metformin, pioglitazone, Tradjenta. Placed him on Lantus insulin sliding scale. Follow HbA1c level. Follow his blood sugars. 3. History of third-degree heart block status post pacemaker. 4. History of chronic kidney disease stage III, creatinine is 1.2. We will follow the labs. 5. Hyperlipidemia, on statin. Follow the lipid profile. 6. Gastroesophageal reflux disease, on Protonix. 7. Hypertension, on lisinopril, Toprol-XL, and amlodipine. We will monitor his blood pressure. 8. Deep venous thrombosis prophylaxis, sequential compression devices for now. 9. Disposition: Closely monitor in the tele floor. Level 1 full code. Social service to help with discharge planning. MTDD
[2020-02-04] MEDS ORDERED: ALBUTEROL HFA 8 GM INHALER INH PRN (03:59)
[2020-02-04] MEDS ORDERED: EUCERIN CR 120 GM JAR EXT PRN (04:01)
[2020-02-04] MEDS ORDERED: OPTIRAY 320 125ml IV PRN (05:49)
[2020-02-04 05:57] LABS: Basophils # (auto) 0.04 K/uL (0-0.2); Basophils % (auto) 0.5 %; Eosinophils # (auto) 0.06 K/uL (0-0.5); Eosinophils % (auto) 0.8 %; Hematocrit (blood only) 38.1 % (42-52); Hemoglobin 11.9 g/dL (14.0-18.0); Immature Granulocytes # (auto) 0.01 K/uL (0.00-0.02); Immature Granulocytes % (auto) 0.1 %; Lymphocytes # (auto) 1.56 K/uL (1.2-3.4); Lymphocytes % (auto) 19.7 %; Mean Corpuscular Hemoglobin 23.5 pg (25-34); Mean Corpuscular Hgb Conc 31.2 g/dL (32-36); Mean Corpuscular Volume 75.3 fL (80-100); Mean Platelet Volume 9.5 fL (7.4-10.4); Monocytes # (auto) 0.56 K/uL (0.11-0.59); Monocytes % (auto) 7.1 %; Neutrophils % (auto) 71.8 %; Platelet Count 279 K/uL (130-400); RDW Coefficient of Variation 20.2 % (11.5-14.5); RDW Standard Deviation 55.2 fL (36.4-46.3); Red Blood Count 5.06 M/uL (4.7-6.1); White Blood Count 7.93 K/uL (4.8-10.8)
[2020-02-04 06:25] LABS: Acanthocytes 1+
[2020-02-04 06:29] LABS: BUN Creatinine Ratio 18.8 (10-20); Calcium 8.9 mg/dl (8.5-10.1); Creatinine Clr Calc Pharmacy 71.2 ml/min; Est GFR (African American) 76.6; Est GFR (Non-African American) 66.1; Potassium 4.2 mmol/L (3.5-5.1)
--- NOTE | 2020-02-04 06:32 | CT Scan Report ---
CT head/brain wo con CLINICAL HISTORY: Weakness. Possible stroke. COMPARISON STUDY: No previous studies for comparison. TECHNIQUE: Axial CT of the brain is performed from the vertex to the skull base. IV contrast was not administered for this examination. A dose lowering technique was utilized adhering to the principles of ALARA. CT DOSE: 614.27 mGy.cm FINDINGS: No intra or extra-axial mass lesions are visualized. There is no CT evidence of acute cortical infarc tion. There is no evidence of midline shift. There is no acute hemorrhage. No calvarial fractures ar e visualized. There are patchy white matter hypodensities likely on a small vessel basis. There is age-related volu me loss. There is no evidence of pathologic ventricular dilatation. There is no evidence of acute sinusitis. There is a right maxillary sinus retention cyst. IMPRESSION: No acute intracranial findings ACT 112: Negative or not required by law. Electronically signed by: Jeevan Prater M.D. 02/04/2020 6:31 AM
[2020-02-04 07:14] LABS: Estimated Average Glucose 146 mg/dl; Hemoglobin A1C 6.7 % (4.5-5.6)
--- NOTE | 2020-02-04 07:35 | CT Scan Report ---
CT angio head w con CLINICAL HISTORY: Acute stroke like symptoms TECHNIQUE: CT angiography of the head was performed in a dynamic helical fashion during intravenous a dministration of 118 cc of Optiray 320. MIP imaging was performed. A dose lowering technique was util ized adhering to the principles of ALARA. CT DOSE: 669.87 mGy.cm COMPARISON STUDY: Noncontrast head CT dated 02/03/2020 FINDINGS: There are no lesion suspicious for aneurysm. There is an abrupt cut off of the right operations research scientist ior cerebral artery at the P1/2 junction. The dural venous sinuses appear patent. IMPRESSION: Right posterior cerebral artery occlusion. ACT 112: Negative or not required by law. Electronically signed by: Jeevan Prater M.D. 02/04/2020 7:34 AM
--- NOTE | 2020-02-04 07:50 | CT Scan Report ---
CT angio neck with con CLINICAL HISTORY: Acute stroke COMPARISON STUDY: No previous studies for comparison. TECHNIQUE: CT angiography was performed from the aortic arch to the skull base. MIP imaging was perfo rmed. The patient was scanned in a dynamic helical fashion during intravenous administration of 118 c c of Optiray 320. A dose lowering technique was utilized adhering to the principles of ALARA. CT DOSE: Technique: CT angiogram of the carotid and vertebral arteries was obtained using intravenous contrast and 3-D reconstruction. NASCET criteria was utilized. Findings: Incidental note is made of bilateral pleural effusions. There is suspected septal edema. There is 13 mm left lobe thyroid nodule. No further workup is indicated in a patient of this age. There are borderline enlarged left supra clavicular lymph node. 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 The right carotid revealed no evidence of aneurysm and no evidence of dissection. There is no evidenc e of hemodynamic significant stenosis. The left carotid revealed no evidence of hemodynamic significant stenosis. There is no evidence of an eurysm. There is no evidence of dissection. There is no evidence of hemodynamically significant vertebral stenosis. There is no evidence of verte bral dissection. IMPRESSION: 1. No evidence of hemodynamically significant carotid or vertebral artery stenosis. No evidence of di ssection. 2. Bilateral pleural effusions and suspected interstitial pulmonary edema ACT 112: Negative or not required by law. Electronically signed by: Jeevan Prater M.D. 02/04/2020 7:49 AM
--- NOTE | 2020-02-04 07:59 | Electrocardiogram Report ---
Test Reason : Blood Pressure : / mmHG Vent. Rate : 086 BPM Atrial Rate : 092 BPM P-R Int : 264 ms QRS Dur : 156 ms QT Int : 398 ms P-R-T Axes : 000 -38 099 degrees QTc Int : 476 ms Ventricular-paced rhythm with premature ventricular or aberrantly conducted complexes Abnormal ECG When compared with ECG of 06-FEB-2019 08:10, Premature ventricular complexes are now Present Vent. rate has decreased BY 3 BPM Confirmed by Bayron Morales ([id number]) on 02/04/2020 7:58:36 AM Referred By: REFERRED SELF Confirmed By:Bayron Morales
--- NOTE | 2020-02-04 08:02 | Hospitalist Progress Note ---
Date of Service February 04, 2020 Assessment & Plan (1) Stroke: -HISTORY OF PRESENT ILLNESS: " This is an 84-year-old male with past medical history significant for type 2 diabetes, chronic kidney disease stage III, hyperlipidemia, third-degree AV block status post pacemaker, hypertension, GERD, who lives with his , and was brought in because of weakness in his lower extremity. The patient states he was watching his TV, when he turned his head to one side he felt very weak. He felt his arms were floating and he stood up from the chair in an effort to move to his couch when he noticed blind spots on the TV and felt extremely weak and he could not ambulate, he stayed on his couch. He felt that he could not walk to his car, 911 was called in and he was brought into the ER." -patient outside of window for TPA when admitted, patient was started on aspirin -on Stat read CTA Head/CTA Neck, day time hospitalist discussed with radiologist Clint Tong ([phone]) that there is right Posterior Cerebral Artery occlussion of the P1/P2 junction that appears to be acute -Day time hospitalist discussed with patient of his health history: He reports that he stopped taking aspirin 1 year ago because of workup for blood from possible GI bleed but he had negative colonoscopy workup. He is patient of [facility] Cardiology service and follows with Dr. Quintana. He reports that Dr. Quintana reviewed his pace maker interrogation around 2 weeks ago and that patient was in atrial fibrillation around 60% of the time but deferred to place patient on systemic anticoagulation while patient considers the options and risks/benefits. -patient has pacemaker and will request MRI department to verify to see of patient is compatible with Brain MRI with/without contrast -low suspicion of DVT but will order lower extremity ultrasound to rule out deep vein thrombosis -hospitalist suspects that patient may benefit from being started on systemic anticoagulation, but will request inpatient [facility] affiliated cardiology and neurology services, await echocardiogram -PT/OT evaluations, passed dsyphagia screen, will get formal speech and swallow evaluation DVT prophylaxis: currently on heparin 5000 subcutaneous q8 hours for now Presence of pacemaker -because of History of third-degree heart block -may have atrial fibrillation Hyperlipidemia -on simvastatin 20 mg qhs at home -while stroke guidelines recommend high intensity statins, the LDL is 66 (under 70) and generally good lipid panel profile so will continue home dose simvastatin 20 mg qHS Hypertension -on lisinopril 20 mg BID, Toprol-XL 25 mg daily, and amlodipine 10 mg daily Diabetes Mellitus Type 2 without buttermaker continuous churn current use of insulin -hold home p.o. medication, metformin, pioglitazone, and Tradjenta -on Lantus insulin and sliding scale insulin -Follow HbA1c level. Follow his blood sugars -will need outpatient Ophthalmology check ups for diabetes care chronic kidney disease stage III -follow renal function Gastroesophageal reflux disease -on Protonix. : [place] [phone] Admission and Anticipated Discharge Date Admission Date: February 04, 2020 Subjective Patient seen an examined at bedside. while on bed appears to be moving okay. no facial droop. no speech impediments. awake and alert and no acute distress. denies chest pain, denies palpitations, denies shortness of breath, denies headache, denies dizziness. Review of Systems Review of Systems: All systems reviewed & are unremarkable except as noted in Subjective Physical Exam Constitutional: comfortable Eyes: PERRL, conjunctivae normal, anicteric sclerae EOM intact bilaterally ENMT: external ear and nose normal, oropharynx normal Neck: normal visual inspection Respiratory: normal respiratory effort Cardiovascular: Rate/Rhythm: + bradycardic (paced rhythm) Gastrointestinal (Abdomen): normal bowel sounds, soft, nontender, no hepatosplenomegaly Musculoskeletal: Head/Neck/Chest: normocephalic Neurologic: PERRL, EOMI, accommodation nl, no face palsy, no dysarthria moves all extremities Psychiatric: A+Ox3, euthymic affect Results & Data Results & Data ([facility]) Vital Signs (Past 12 Hours) Vital Signs Temp Pulse Pulse Resp BP BP Pulse Ox 02/04/20 07:08 37.1 C 60 151/72 H 92 02/04/20 03:47 36.7 C 75 16 165/75 H 94 02/04/20 03:12 75 20 122/81 90 02/04/20 02:33 68 20 127/56 L 93 02/04/20 01:51 86 20 143/73 H 97 02/04/20 01:08 74 20 131/73 95 02/04/20 00:39 75 20 123/80 95 02/03/20 23:54 68 20 147/75 H 98 02/03/20 23:26 98 02/03/20 23:21 36.6 C 75 20 151/75 H 97
--- NOTE | 2020-02-04 08:22 | Communication Note ---
Date of Service: February 04, 2020 I just received a consultation on this 84-year-old man with type 2 diabetes, dyslipidemia, stage III renal disease, and complete heart block status post pace r insertion with recent pacemaker interrogation revealing paroxysmal atrial fibrillation about 60% of the time. He has been off aspirin due to some GI bleeding for about a year. 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 Quintana are in the process of making a decision regarding anticoagulation. In this setting he now presents with an event characterized by disequilibrium visual field alterations and left leg weakness most of which is apparently cleared with possible treatment of the left leg weakness which was evident only when he attempted to stand and do orthostatic blood pressure checks in the emergency room. Is not clear whether he has a visual field deficits CT scan is negative but CT angiography shows an abrupt cut off of the right posterior cerebral artery. CT angiography of the neck shows no significant arterial lesions and refer the reader to the report from the other ancillary abnormalities described At this point he has been started back on aspirin and frankly I would add Plavix at this point until cardiology assesses him and makes a decision about novel anticoagulant vs coumadin as in all likelihood this was an acute embolic event and antiplatelet therapy is unlikely to offer much protection. He may however be reluctant to go on to anticoagulation and in that setting I see no harm in at least a brief period of dual antiplatelet treatment for 21 days and then low- dose aspirin. I will be in today to do an examination and I would suggest a CT scan be done in the morning to check for evolving right posterior cerebral artery distribution infarction. If I do find evidence for a visual field deficit or visual field neglect we will not be able to operate a motor vehicle and will need to see ophthalmology on outpatient basis for more formal evaluation Breezy Johansen MD
[2020-02-04] MEDS ORDERED: ASPIRIN 81 MG ECTAB PO SCH (09:00)
[2020-02-04] MEDS: MUCINEX DM~ORDER AWAITING ACTION SCH ×2 (09:09→16:44)
[2020-02-04] MEDS: INSULIN ASPART 100 UNITS/ML 3 ML PEN SC SCH ×4 (09:18→20:16)
[2020-02-04] MEDS: FERROUS SULFATE 325 MG TAB PO SCH (09:20)
[2020-02-04] MEDS: CYANOCOBALAMIN 500 MCG TABLET (VITAMIN B-12) PO SCH (09:20)
[2020-02-04] MEDS: METOPROLOL SUCC 25MG EXT REL TAB PO SCH (09:20)
[2020-02-04] MEDS: PANTOprazole 40 MG TAB PO SCH (09:20)
[2020-02-04] MEDS: CHOLECALCIFEROL 1,000 UNITS 25 MCG TAB PO SCH (09:20)
[2020-02-04] MEDS: lisinopriL 20 MG TAB PO SCH ×2 (09:21→20:15)
[2020-02-04] MEDS: AMLODIPINE BESYLATE 5 MG TAB PO SCH (09:22)
[2020-02-04] MEDS: INSULIN GLARGINE SOLOSTAR 100 UNITS/ML 3 ML PEN SC SCH ×2 (09:22→20:16)
--- NOTE | 2020-02-04 10:36 | Communication Note ---
Date of Service: February 04, 2020 I just performed an examination on Mr. Roberts and discussed his case with Eliu Mar MD who is here representing cardiology and has also reviewed his chart. I have also discussed the situation with his attending Dr. Hairston. This man has paroxysmal atrial fibrillation documented by interrogation of his pacemaker and documented in a recent outpatient cardiology note by Dr. Quintana and apparently is still trying to decide about whether he needs to be on anticoagulation or will be willing to accept anticoagulation as I think the recommendations have been fairly clear that he needs to strongly consider this. At one point he was on aspirin and stopped it because of some gastrointestinal issues although work-up apparently for GI bleed was negative He now presents with what I suspect is an acute embolic event involving the right posterior cerebral artery with some transient ischemia of some of the deep perforating branches originating from the posterior cerebral supplying the right basal ganglia and manifested by gait disturbance and transient weakness and clumsiness of the left leg in addition to some vaguely defined visual abnormalities which he claims have cleared completely at this point CT scan thus far shows no evidence for an infarction but the CT angiography studies demonstrate an acute cut off of the right posterior cerebral artery. There is no significant extracranial stenosis in the neck or a proximal vertebral artery stenosis according to the report On exam he is awake alert oriented in 3 spheres and denies any real deficits but clearly has a pretty dense left homonymous hemianopsia on confrontation, neglect bilateral visual stimulation presented on the left side, has normal eye movements no nystagmus normal facial sensation clear speech no real drift of the left arm and leg and no cerebellar dysmetria on appropriate testing. The exam was done in the ultrasound room where he is being evaluated for deep venous t hrombo-phlebitis and was limited to some degree by the need to perform it while he was laying on a cart and by the restrictions imposed by the COVID-19 separation requirements Neurology recommendations were outlined on the prior note from this morning before had a chance to examine him and really have not changed Both Dr. Mar and I are in agreement that he needs to be on some form of anticoagulation beyond antiplatelet agents which really confer very little advantage in the setting of atrial fibrillation. If he is reluctant to consider either Coumadin or 1 of the novel anticoagulants then I suspect we will have to provide a "Band-Aid" with dual antiplatelet therapy for 3 weeks and then daily aspirin but frankly I would strongly recommend either Coumadin or a novel anticoagulant in this case as the story is very consistent with an acute embolic event He will not be able to drive a motor vehicle as he has a dense field cut with neglect and he will need to see ophthalmology after discharge for official determination of the density of his deficits Neurology will need to see him in 4 to 6 weeks as part of the standard post stroke protocol but this could be done by telephone or tele-video and regular visits in neurology in my opinion are probably not going to be necessary unless he would develop other issues I am going to sign off the case at the present time I would be happy to reassess him either by computer or by direct visit if anything changes in the immediate future during the current hospitalization Breezy Johansen MD
--- NOTE | 2020-02-04 10:46 | Ultrasound Report ---
US venous doppler LE BI CLINICAL HISTORY: Thrombophlebitis COMPARISON STUDY: No previous studies for comparison. FINDINGS: Real-time and color flow Doppler imaging were performed. Flow was seen within the femoral, popliteal and calf veins with no intraluminal thrombus demonstrated. The saphenous vein is patent. IMPRESSION: No evidence of lower extremity DVT. ACT 112: Negative or not required by law. Electronically signed by: Jeevan Prater M.D. 02/04/2020 10:45 AM
--- NOTE | 2020-02-04 12:56 | Cardiology Consultation ---
Date of Consultation February 04, 2020 Assessment & Plan (1) Acute cerebrovascular accident: Patient is an 84-year-old male with recently noted atrial fibrillation and anticoagulation not begun due to concerns regarding chronic GI blood loss. 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 Patient warrants full anticoagulation. DOAC may have slightly lower risk of GI bleeding over warfarin. Normal GFR present (2) Paroxysmal atrial fibrillation: (3) Chronic GI bleeding: (4) Iron deficiency anemia due to chronic blood loss: (5) Pacemaker: History of Present Illness Reason for Consultation: Occipital stroke, atrial fibrillation Requesting Physician: Dr. Hairston Attending Physician: Jose Antonio Hairston MD History of Present Illness Patient is an 84-year-old male with issues as follows 1. 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 Recently observed atrial fibrillation on pacemaker interrogations 3. Hypertension 4. Type 2 diabetes mellitus 5. Chronic anemia/GI blood loss with negative evaluation Patient is referred after acute presentation last evening sudden onset weakness and visual field loss with evidence of posterior cerebellar stroke by CTA and exam. Patient in atrial fibrillation on presentation patient is referred regarding further management. Patient other than weakness fatigue notes no acute complaints. No prior history of TIA or stroke. Patient not aware of irregular heart rhythm, chest pain or shortness of breath. No fevers chills or unexplained infections. Mild nausea since admission Past difficulties as noted with chronic anemia with microcytic indices and iron deficiency improved since iron supplementation. Symptoms occurred while on aspirin alone. Has noted atrial fibrillation was recently observed on interrogation of pacemaker and anticoagulation not initially initiated due to concerns regarding anemia on antiplatelet therapy alone. Allergies Allergy/AdvReac Type Severity Reaction Status Date / Time Sulfa (Sulfonamide Allergy Mild HIVES Verified 02/04/20 00:17 Antibiotics) Home Medications Home Medications Medication Instructions Recorded Confirmed Type Eucerin 1 applic TOPICAL UD PRN 03/15/19 02/04/20 History Mucinex DM 1 tab PO BID PRN 03/15/19 02/04/20 History albuterol sulfate [ProAir HFA] 2 puff INHALATION Q6H PRN 03/15/19 02/04/20 History amlodipine 10 mg PO QAM 03/15/19 02/04/20 History cholecalciferol (vitamin D3) 1,000 unit PO QAM 03/15/19 02/04/20 History [Vitamin D3] cyanocobalamin (vitamin B-12) 1,000 mcg PO QAM 03/15/19 02/04/20 History ferrous sulfate [Iron (ferrous 325 mg PO QAM 03/15/19 02/04/20 History sulfate)] fluticasone propionate [Flonase 2 spray INTRANASAL DAILY PRN 03/15/19 02/04/20 History Allergy Relief] linagliptin 5 mg PO QAM 03/15/19 02/04/20 History lisinopril 20 mg PO BID 03/15/19 02/04/20 History metformin 1,000 mg PO BID 03/15/19 02/04/20 History pantoprazole 40 mg PO QAM 03/15/19 02/04/20 History pioglitazone 45 mg PO QAM 03/15/19 02/04/20 History simvastatin 20 mg PO HS 03/15/19 02/04/20 History metoprolol succinate 25 mg PO DAILY 02/04/20 02/04/20 History trazodone 50 mg PO HS 02/04/20 02/04/20 History Patient History Medical History (Updated 02/04/20 @ 13:07 by Eliu Mar MD) Diabetes mellitus, type 2 Hearing deficit History of bronchitis reason for inhaler History of colon polyps Hyperlipidemia Hypertension Irregular heart rate prior to pacemaker placement LLQ abdominal pain (Acute) Pacemaker 2012 Medtronic ADD RL 1 Surgical History History of appendectomy with bowel resection History of bowel resection 1985 History of colonoscopy History of esophagogastroduodenoscopy (EGD) History of left inguinal hernia repair History of phacoemulsification of cataract of both eyes with intraocular lens implantation History of tonsillectomy and adenoidectomy History of wisdom tooth extraction S/P cholecystectomy (Resolved) Status post right partial knee replacement Family History Brother Family history of diabetes mellitus Mother Family hx colonic polyps Other No family history of adverse response to anesthesia Social History Preferred Language: Icelandic Communication Ability: Effective Strip Cutter Required: No Beliefs That Will Affect Care: None marital status: Current Living Situation: Spouse current occupational status: retired Other Information That Helps Us Care for You: No Feels Safe at Home: Yes Safety Concerns: Feels Safe At This Time Smoking Status: Former smoker Tobacco Type: cigarettes ; Do You Dip or Chew Tobacco: No ; Second Hand Exposure: Yes (father smoked) ; Hx Alcohol Use: No Hx Substance Use: No Physical Exam Constitutional: WD/WN, vitals as above Eyes: PERRL, conjunctivae normal, anicteric sclerae ENMT: external ear and nose normal, oropharynx normal Neck: trachea midline, no thyromegaly Respiratory: normal respiratory effort, lungs clear to auscultation Cardiovascular: Rate/Rhythm: regular rate (Paced) Heart Sounds: normal S1 and normal S2 Palpation: normal PMI Vessels: normal carotid upstroke; no JVD, no carotid bruit and no abdominal aortic bruit Extremities: no edema Chest (Breasts): Chest: + pacemaker (Site without irritation or tenderness) Gastrointestinal (Abdomen): normal bowel sounds, soft, nontender, no hepatosplenomegaly Musculoskeletal: no cyanosis or clubbing, extremities motor strength 5/5 Neurologic: Visual field cut present by confrontation Results & Data ([facility]) Vital Signs (Past 12 Hours) Vital Signs Temp Pulse Pulse Resp BP BP Pulse Ox 02/04/20 12:13 36.9 C 66 22 150/63 H 97 02/04/20 08:50 36.7 C 70 18 175/73 H 92 02/04/20 08:07 86 02/04/20 07:08 37.1 C 60 151/72 H 92 02/04/20 03:47 36.7 C 75 16 165/75 H 94 02/04/20 03:12 75 20 122/81 90 02/04/20 02:33 68 20 127/56 L 93 02/04/20 01:51 86 20 143/73 H 97 02/04/20 01:08 74 20 131/73 95 Laboratory Results Laboratory Results - last 24 hr 02/03/20 02/03/20 02/04/20 23:15 23:15 05:42 WBC 7.49 7.93 RBC 4.96 5.06 Hgb 11.9 L 11.9 L Hct 37.6 L 38.1 L MCV 75.8 L 75.3 L MCH 24.0 L 23.5 L MCHC 31.6 L 31.2 L RDW Std Deviation 56.0 H 55.2 H RDW Coeff of Glenys 20.3 H 20.2 H Plt Count 292 279 MPV 9.8 9.5 Immature Gran % (Auto) 0.1 0.1 Neut % (Auto) 47.7 71.8 Lymph % (Auto) 38.3 19.7 [place] % (Auto) 10.9 7.1 Eos % (Auto) 2.5 0.8 Baso % (Auto) 0.5 0.5 Immature Gran # (Auto) 0.01 0.01 Neut # (Auto) 3.56 5.70 Lymph # (Auto) 2.87 1.56 [place] # (Auto) 0.82 H 0.56 Eos # (Auto) 0.19 0.06 Baso # (Auto) 0.04 0.04 Echinocytes 1+ Acanthocytes (Spur) 1+ Sodium 142 Potassium 4.1 Chloride 112 H Carbon Dioxide 23 Anion Gap 7.0 BUN 18 Creatinine 1.23 Est Cr Clr Drug Dosing 61.0 Est GFR ( Amer) 62.5 Est GFR (Non-Af Amer) 54.0 BUN/Creatinine Ratio 14.6 Glucose 167 H POC Glucose Estimat Average Glucose Hemoglobin A1c Calcium 8.9 Total Bilirubin 0.4 AST 14 L ALT 21 Alkaline Phosphatase 85 Total Protein 7.7 Albumin 3.8 Globulin 3.9 Albumin/Globulin Ratio 1.0 Triglycerides Cholesterol LDL Cholesterol, Calc VLDL Cholesterol, Calc HDL Cholesterol Cholesterol/HDL Ratio TSH 5.110 H Free T4 1.18 02/04/20 02/04/20 02/04/20 05:42 05:42 09:14 WBC RBC Hgb Hct MCV MCH MCHC RDW Std Deviation RDW Coeff of Glenys Plt Count MPV Immature Gran % (Auto) Neut % (Auto) Lymph % (Auto) [place] % (Auto) Eos % (Auto) Baso % (Auto) Immature Gran # (Auto) Neut # (Auto) Lymph # (Auto) [place] # (Auto) Eos # (Auto) Baso # (Auto) Echinocytes Acanthocytes (Spur) Sodium 141 Potassium 4.2 Chloride 111 H Carbon Dioxide 25 Anion Gap 5.0 BUN 20 H Creatinine 1.04 Est Cr Clr Drug Dosing 71.2 Est GFR ( Amer) 76.6 Est GFR (Non-Af Amer) 66.1 BUN/Creatinine Ratio 18.8 Glucose 140 H POC Glucose 141 H Estimat Average Glucose 146 Hemoglobin A1c 6.7 H Calcium 8.9 Total Bilirubin AST ALT Alkaline Phosphatase Total Protein Albumin Globulin Albumin/Globulin Ratio Triglycerides 55 Cholesterol 134 LDL Cholesterol, Calc 66 VLDL Cholesterol, Calc 11 HDL Cholesterol 57 Cholesterol/HDL Ratio 2 TSH Free T4 02/04/20 11:08 WBC RBC Hgb Hct MCV MCH MCHC RDW Std Deviation RDW Coeff of Glenys Plt Count MPV Immature Gran % (Auto) Neut % (Auto) Lymph % (Auto) [place] % (Auto) Eos % (Auto) Baso % (Auto) Immature Gran # (Auto) Neut # (Auto) Lymph # (Auto) [place] # (Auto) Eos # (Auto) Baso # (Auto) Echinocytes Acanthocytes (Spur) Sodium Potassium Chloride Carbon Dioxide Anion Gap BUN Creatinine Est Cr Clr Drug Dosing Est GFR ( Amer) Est GFR (Non-Af Amer) BUN/Creatinine Ratio Glucose POC Glucose 130 H Estimat Average Glucose Hemoglobin A1c Calcium Total Bilirubin AST ALT Alkaline Phosphatase Total Protein Albumin Globulin Albumin/Globulin Ratio Triglycerides Cholesterol LDL Cholesterol, Calc VLDL Cholesterol, Calc HDL Cholesterol Cholesterol/HDL Ratio TSH Free T4
[2020-02-04] MEDS ORDERED: HEPARIN SOD 5,000 UNIT/0.5 ML VIAL SQ SCH (14:00)
[2020-02-04] MEDS: ACETAMINOPHEN 325 MG TAB PO PRN ×2 (14:34→20:15)
[2020-02-04] MEDS ORDERED: APIXABAN 5 MG TABLET PO STA (18:01)
[2020-02-04] MEDS: TRAZODONE HCL 50 MG TAB PO SCH (20:15)
[2020-02-04] MEDS: SIMVASTATIN 20 MG TAB PO SCH (20:15)
[2020-02-05] MEDS: MUCINEX DM~ORDER AWAITING ACTION SCH ×3 (02:07→15:50)
[2020-02-05 06:20] LABS: Basophils # (auto) 0.02 K/uL (0-0.2); Basophils % (auto) 0.3 %; Eosinophils # (auto) 0.12 K/uL (0-0.5); Eosinophils % (auto) 1.8 %; Hematocrit (blood only) 32.8 % (42-52); Hemoglobin 10.3 g/dL (14.0-18.0); Immature Granulocytes # (auto) 0.01 K/uL (0.00-0.02); Immature Granulocytes % (auto) 0.2 %; Lymphocytes # (auto) 2.22 K/uL (1.2-3.4); Lymphocytes % (auto) 33.4 %; Mean Corpuscular Hemoglobin 23.7 pg (25-34); Mean Corpuscular Hgb Conc 31.4 g/dL (32-36); Mean Corpuscular Volume 75.4 fL (80-100); Mean Platelet Volume 9.8 fL (7.4-10.4); Monocytes # (auto) 0.67 K/uL (0.11-0.59); Monocytes % (auto) 10.1 %; Neutrophils % (auto) 54.2 %; Platelet Count 248 K/uL (130-400); RDW Coefficient of Variation 20.3 % (11.5-14.5); RDW Standard Deviation 56.3 fL (36.4-46.3); Red Blood Count 4.35 M/uL (4.7-6.1); White Blood Count 6.64 K/uL (4.8-10.8)
[2020-02-05 06:50] LABS: BUN Creatinine Ratio 13.1 (10-20); Calcium 8.5 mg/dl (8.5-10.1); Creatinine Clr Calc Pharmacy 70.1 ml/min; Est GFR (African American) 75.7; Est GFR (Non-African American) 65.3; Potassium 3.8 mmol/L (3.5-5.1)
[2020-02-05 06:58] LABS: Anisocytosis Present; Microcytosis Present; Poikilocytosis Present
--- NOTE | 2020-02-05 07:56 | Hospitalist Progress Note ---
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 The patient states he was watching his TV, when he turned his head to one side he felt very weak. He felt his arms were floating and he stood up from the chair in an effort to move to his couch when he noticed blind spots on the TV and felt extremely weak and he could not ambulate, he stayed on his couch. He felt that he could not walk to his car, 911 was called in and he was brought into the ER." -patient outside of window for TPA when admitted, patient was started on aspirin -on Stat read CTA Head/CTA Neck, day time hospitalist discussed with radiologist Clint Tong ([phone]) that there is right Posterior Cerebral Artery occlussion of the P1/P2 junction that appears to be acute -Day time hospitalist discussed with patient of his health history: He reports that he stopped taking aspirin 1 year ago because of workup for blood from possible GI bleed but he had negative colonoscopy workup. He is patient of [facility] Cardiology service and follows with Dr. Quintana. He reports that Dr. Quintana reviewed his pace maker interrogation around 2 weeks ago and that patient was in atrial fibrillation around 60% of the time but deferred to place patient on systemic anticoagulation while patient considers the options and risk s/benefits. -patient could not get Brain MRI because of pacemaker -no DVT of lower extremities on ultrasound -after discussion with cardiology service and neurology service, patient was started on Eliquis 5 mg BID on 02/04/2020. -Patient is upgraded from observation status to full admission status because of management of stroke and because PT/OT evaluations suggests that he will need inpatient rehabilitation to help improve his conditioning and walking. -as per 02/05/2020 neurology physical exam "has a pretty dense left homonymous hemianopsia on confrontation, neglect bilateral visual stimulation presented on the left side, has normal eye movements no nystagmus normal facial sensation clear speech no real drift of the left arm and leg and no cerebellar dysmetria on appropriate testing." other Neurology recommendations: He will not be able to drive a motor vehicle as he has a dense field cut with neglect and he will need to see ophthalmology after discharge for official determination of the density of his deficits. Neurology will need to see him in 4 to 6 weeks as part of the standard post stroke protocol but this could be done by telephone or tele-video and regular visits in neurology Presence of pacemaker -because of History of third-degree heart block Paroxysmal atrial fibrillation -metoprolol succinate 25 mg daily Hyperlipidemia -on simvastatin 20 mg qhs at home -while stroke guidelines recommend high intensity statins, the LDL is 66 (under 70) and generally good lipid panel profile so will continue home dose simvastatin 20 mg qHS Hypertension -on lisinopril 20 mg BID, metoprolol succinate 25 mg, and amlodipine 10 mg daily Diabetes Mellitus Type 2 without fpc current use of insulin -hold home p.o. medication, metformin, pioglitazone, and Tradjenta -on Lantus insulin and sliding scale insulin -HbA1c 6.7. Follow his blood sugars -will need outpatient Ophthalmology check ups for diabetes care chronic kidney disease stage III -follow renal function Gastroesophageal reflux disease -on Protonix. DVT prophylaxis: Eliquis : [place] [phone] Admission and Anticipated Discharge Date Admission Date: February 05, 2020 Subjective Patient seen and examined at beside. Telemetry continues to show paced rhythm. Patient took Eliquis yesterday and agrees to the care plan. He is able to move all extremities on the bed. he understands need for further physical therapy services for his ambulation. patient denies headache, dizziness, chest pain, palpitations, or shortness of breath. no speech impediments. he does not complain of blurred vision Review of Systems Review of Systems: All systems reviewed & are unremarkable except as noted in Subjective Physical Exam Constitutional: comfortable Eyes: PERRL, conjunctivae normal, anicteric sclerae EOM intact bilaterally ENMT: external ear and nose normal, oropharynx normal Neck: normal visual inspection Respiratory: normal respiratory effort Cardiovascular: Rate/Rhythm: + bradycardic (paced rhythm) Gastrointestinal (Abdomen): normal bowel sounds, soft, nontender, no hepatosplenomegaly Musculoskeletal: Head/Neck/Chest: normocephalic Neurologic: PERRL, EOMI, accommodation nl, no face palsy, no dysarthria moves all extremities Psychiatric: A+Ox3, euthymic affect Results & Data Results & Data ([facility]) Vital Signs (Past 12 Hours) Vital Signs Temp Pulse Pulse Resp BP BP Pulse Ox 02/05/20 04:27 36.3 C L 60 16 112/55 L 93 02/04/20 23:59 86 02/04/20 23:39 36.5 C 66 16 119/64 93
[2020-02-05] MEDS: INSULIN ASPART 100 UNITS/ML 3 ML PEN SC SCH ×4 (08:12→21:00)
[2020-02-05] MEDS: INSULIN GLARGINE SOLOSTAR 100 UNITS/ML 3 ML PEN SC SCH ×2 (08:13→21:00)
[2020-02-05] MEDS: AMLODIPINE BESYLATE 5 MG TAB PO SCH (08:15)
[2020-02-05] MEDS: PANTOprazole 40 MG TAB PO SCH (08:15)
[2020-02-05] MEDS: CYANOCOBALAMIN 500 MCG TABLET (VITAMIN B-12) PO SCH (08:15)
[2020-02-05] MEDS: lisinopriL 20 MG TAB PO SCH ×2 (08:15→20:59)
[2020-02-05] MEDS: FERROUS SULFATE 325 MG TAB PO SCH (08:15)
[2020-02-05] MEDS: CHOLECALCIFEROL 1,000 UNITS 25 MCG TAB PO SCH (08:15)
[2020-02-05] MEDS: METOPROLOL SUCC 25MG EXT REL TAB PO SCH (08:16)
--- NOTE | 2020-02-05 09:03 | Electrocardiogram Report ---
Test Reason : Blood Pressure : / mmHG Vent. Rate : 069 BPM Atrial Rate : 046 BPM P-R Int : 000 ms QRS Dur : 084 ms QT Int : 362 ms P-R-T Axes : 000 017 099 degrees QTc Int : 387 ms Poor data quality, interpretation may be adversely affected Atrial fibrillation Pacemaker present, possible lack of ventricular capture (pacemaker malfunction) Low voltage QRS Cannot rule out Anteroseptal infarct , age undetermined Abnormal ECG When compared with ECG of 03-FEB-2020 23:15, Lack of ventricular capture is new Confirmed by Bayron Morales ([id number]) on 02/05/2020 9:02:51 AM Referred By: REFERRED SELF Confirmed By:Bayron Morales
[2020-02-05] MEDS: APIXABAN 5 MG TABLET PO SCH ×2 (09:31→20:59)
--- NOTE | 2020-02-05 10:49 | Communication Note ---
Date of Service: February 05, 2020 I have reviewed Mr. Roberts's chart and note that he is now on Eliquis which I think is quite appropriate given his paroxysmal atrial fibrillation and the lack of other clear-cut cause for his current CVA. A repeat CT scan has not been done and I would recommend that we do one just to be sure the presumptive right occipital infarction has not undergone hemorrhagic transformation which is slightly higher in strokes involving this arterial distribution and will be an important exclusion not if he is on or will be on full anticoagulation My other recommendations will remain unchanged i.e. he should not drive an automobile he will need to be seen by ophthalmology, as vascular risk factors will need to be addressed by his primary care physicians as I am sure they already are and he will need to be seen in our office in about 6 weeks as part of the routine post CVA protocol Breezy Johansen MD
[2020-02-05] MEDS: SIMVASTATIN 20 MG TAB PO SCH (20:59)
[2020-02-05] MEDS: TRAZODONE HCL 50 MG TAB PO SCH (20:59)
[2020-02-06] MEDS: MUCINEX DM~ORDER AWAITING ACTION SCH ×3 (00:55→15:45)
[2020-02-06 06:14] LABS: Basophils # (auto) 0.03 K/uL (0-0.2); Basophils % (auto) 0.4 %; Eosinophils # (auto) 0.15 K/uL (0-0.5); Eosinophils % (auto) 2.2 %; Hematocrit (blood only) 34.5 % (42-52); Immature Granulocytes # (auto) 0.01 K/uL (0.00-0.02); Immature Granulocytes % (auto) 0.1 %; Lymphocytes # (auto) 1.79 K/uL (1.2-3.4); Lymphocytes % (auto) 26.7 %; Mean Corpuscular Hemoglobin 24.3 pg (25-34); Mean Corpuscular Hgb Conc 31.9 g/dL (32-36); Mean Corpuscular Volume 76.2 fL (80-100); Mean Platelet Volume 9.7 fL (7.4-10.4); Monocytes # (auto) 0.79 K/uL (0.11-0.59); Monocytes % (auto) 11.8 %; Neutrophils # (auto) 3.94 K/uL (1.4-6.5); Neutrophils % (auto) 58.8 %; Platelet Count 253 K/uL (130-400); RDW Coefficient of Variation 20.3 % (11.5-14.5); Red Blood Count 4.53 M/uL (4.7-6.1); White Blood Count 6.71 K/uL (4.8-10.8)
[2020-02-06 06:36] LABS: Anisocytosis Present; Hypochromasia Present
[2020-02-06 06:50] LABS: BUN Creatinine Ratio 11.4 (10-20); Calcium 8.5 mg/dl (8.5-10.1); Creatinine Clr Calc Pharmacy 62.6 ml/min; Est GFR (African American) 66.4; Est GFR (Non-African American) 57.3; Potassium 3.7 mmol/L (3.5-5.1)
[2020-02-06] MEDS: PANTOprazole 40 MG TAB PO SCH (08:58)
[2020-02-06] MEDS: CHOLECALCIFEROL 1,000 UNITS 25 MCG TAB PO SCH (08:58)
[2020-02-06] MEDS: METOPROLOL SUCC 25MG EXT REL TAB PO SCH (08:58)
[2020-02-06] MEDS: INSULIN ASPART 100 UNITS/ML 3 ML PEN SC SCH ×4 (08:59→20:45)
[2020-02-06] MEDS: INSULIN GLARGINE SOLOSTAR 100 UNITS/ML 3 ML PEN SC SCH ×2 (09:01→20:44)
[2020-02-06] MEDS: lisinopriL 20 MG TAB PO SCH ×2 (09:02→20:44)
[2020-02-06] MEDS: CYANOCOBALAMIN 500 MCG TABLET (VITAMIN B-12) PO SCH (09:02)
[2020-02-06] MEDS: APIXABAN 5 MG TABLET PO SCH ×2 (09:02→20:43)
[2020-02-06] MEDS: AMLODIPINE BESYLATE 5 MG TAB PO SCH (09:02)
[2020-02-06] MEDS: FERROUS SULFATE 325 MG TAB PO SCH (09:02)
[2020-02-06] MEDS ORDERED: POLYETHYLENE (MIRALAX) 17 GM PACK PO ONE (09:04)
[2020-02-06] MEDS ORDERED: POLYETHYLENE (MIRALAX) 17 GM PACK PO PRN (09:04)
--- NOTE | 2020-02-06 09:08 | Hospitalist Progress Note ---
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 The patient states he was watching his TV, when he turned his head to one side he felt very weak. He felt his arms were floating and he stood up from the chair in an effort to move to his couch when he noticed blind spots on the TV and felt extremely weak and he could not ambulate, he stayed on his couch. He felt that he could not walk to his car, 911 was called in and he was brought into the ER." -patient outside of window for TPA when admitted, patient was started on aspirin -on Stat read CTA Head/CTA Neck, day time hospitalist discussed with radiologist Clint Tong ([phone]) that there is right Posterior Cerebral Artery occlussion of the P1/P2 junction that appears to be acute -Day time hospitalist discussed with patient of his health history: He reports that he stopped taking aspirin 1 year ago because of workup for blood from possible GI bleed but he had negative colonoscopy workup. He is patient of [facility] Cardiology service and follows with Dr. Quintana. He reports that Dr. Quintana reviewed his pace maker interrogation around 2 weeks ago and that patient was in atrial fibrillation around 60% of the time but deferred to place patient on systemic anticoagulation while patient considers the options and risk s/benefits. -patient could not get Brain MRI because of pacemaker -no DVT of lower extremities on ultrasound -after discussion with cardiology service and neurology service, patient was started on Eliquis 5 mg BID on 02/04/2020. -Patient is upgraded from observation status to full admission status because of management of stroke and because PT/OT evaluations suggests that he will need inpatient rehabilitation to help improve his conditioning and walking. -as per 02/05/2020 neurology physical exam "has a pretty dense left homonymous hemianopsia on confrontation, neglect bilateral visual stimulation presented on the left side, has normal eye movements no nystagmus normal facial sensation clear speech no real drift of the left arm and leg and no cerebellar dysmetria on appropriate testing." other Neurology recommendations: He will not be able to drive a motor vehicle as he has a dense field cut with neglect and he will need to see ophthalmology after discharge for official determination of the density of his deficits. Neurology will need to see him in 4 to 6 weeks as part of the standard post stroke protocol but this could be done by telephone or tele-video and regular visits in neurology Presence of pacemaker -because of History of third-degree heart block Paroxysmal atrial fibrillation -metoprolol succinate 25 mg daily Hyperlipidemia -on simvastatin 20 mg qhs at home -while stroke guidelines recommend high intensity statins, the LDL is 66 (under 70) and generally good lipid panel profile so will continue home dose simvastatin 20 mg qHS Hypertension -on lisinopril 20 mg BID, metoprolol succinate 25 mg, and amlodipine 10 mg daily Diabetes Mellitus Type 2 without mcfp current use of insulin -hold home p.o. medication, metformin, pioglitazone, and Tradjenta -on Lantus insulin and sliding scale insulin -HbA1c 6.7. Follow his blood sugars -will need outpatient Ophthalmology check ups for diabetes care chronic kidney disease stage III -follow renal function Gastroesophageal reflux disease -on Protonix. DVT prophylaxis: Karina : [place] [phone] Admission and Anticipated Discharge Date Admission Date: February 05, 2020 Subjective On telemetry, patient has paced rate with rhythm of atrial fibrillation. Seen and examined and breathing on room air. no chest pain. no palpitations. patient denies having bowel movements. no other symptoms reported. on physical exam while laying on the bed he appears to be 5/5 motor strength but awaits further PT/OT evaluations with his walking later today. Review of Systems Review of Systems: All systems reviewed & are unremarkable except as noted in Subjective Physical Exam Constitutional: comfortable Eyes: PERRL, conjunctivae normal, anicteric sclerae EOM intact bilaterally ENMT: external ear and nose normal, oropharynx normal Neck: normal visual inspection Respiratory: normal respiratory effort Cardiovascular: Rate/Rhythm: + bradycardic (paced rate with rhythm of atrial fibrillation) Gastrointestinal (Abdomen): normal bowel sounds, soft, nontender, no hepatosplenomegaly Musculoskeletal: Head/Neck/Chest: normocephalic on physical exam while laying on the bed he appears to be 5/5 motor strength but awaits further PT/OT evaluations with his walking later today. Neurologic: PERRL, EOMI, accommodation nl, no face palsy, no dysarthria moves all extremities Psychiatric: A+Ox3, euthymic affect Results & Data Results & Data ([facility]) Vital Signs (Past 12 Hours) Vital Signs Temp Pulse Resp BP BP Pulse Ox 02/06/20 06:49 36.6 C 60 16 130/71 96 02/06/20 03:55 36.8 C 59 L 16 122/65 98 02/05/20 22:54 37.1 C 60 16 126/67 95
--- NOTE | 2020-02-06 09:10 | Electrocardiogram Report ---
Test Reason : Blood Pressure : / mmHG Vent. Rate : 073 BPM Atrial Rate : 068 BPM P-R Int : 000 ms QRS Dur : 154 ms QT Int : 418 ms P-R-T Axes : 000 -43 086 degrees QTc Int : 460 ms AV sequential or dual chamber electronic pacemaker occasional atrial pacing without evidence of capture ventricular-paced complexes with appropriate capture When compared with ECG of 04-FEB-2020 08:54, attempted atrial pacing now seen appropriate venticular pacing with capture now seen Confirmed by Ignacio Lewis ([id number]) on 02/06/2020 9:09:49 AM Referred By: REFERRED SELF Confirmed By:Ignacio Lewis
[2020-02-06] MEDS: SENNA 8.6 MG TAB PO SCH (09:25)
[2020-02-06] MEDS: SIMVASTATIN 20 MG TAB PO SCH (20:44)
[2020-02-06] MEDS: TRAZODONE HCL 50 MG TAB PO SCH (20:48)
[2020-02-06 22:18] LABS: Appearance Urine Clear (Clear); Bilirubin Urine Negative (Negative); Blood Urine Negative (Negative); Color Urine Yellow; Glucose Urine UA Negative (Negative); Ketones Urine Negative (Negative); Leukocyte Esterase Urine Negative (Negative); Nitrite Urine Negative (Negative); Protein Urine Negative (Negative); Specific Gravity Urine 1.011 (1.000-1.030); Urobilinogen Urine Negative (Negative)
[2020-02-07] MEDS: MUCINEX DM~ORDER AWAITING ACTION SCH ×2 (03:42→08:32)
[2020-02-07] MEDS ORDERED: LORazepam 0.25 MG/0.5 ML VIAL IV STA (03:43)
[2020-02-07] MEDS: CYANOCOBALAMIN 500 MCG TABLET (VITAMIN B-12) PO SCH (08:28)
[2020-02-07] MEDS: PANTOprazole 40 MG TAB PO SCH (08:29)
[2020-02-07] MEDS: FERROUS SULFATE 325 MG TAB PO SCH (08:29)
[2020-02-07] MEDS: AMLODIPINE BESYLATE 5 MG TAB PO SCH (08:29)
[2020-02-07] MEDS: SENNA 8.6 MG TAB PO SCH (08:29)
[2020-02-07] MEDS: METOPROLOL SUCC 25MG EXT REL TAB PO SCH (08:29)
[2020-02-07] MEDS: lisinopriL 20 MG TAB PO SCH (08:29)
[2020-02-07] MEDS: INSULIN ASPART 100 UNITS/ML 3 ML PEN SC SCH ×2 (08:30→11:46)
[2020-02-07] MEDS: CHOLECALCIFEROL 1,000 UNITS 25 MCG TAB PO SCH (08:30)
[2020-02-07] MEDS: APIXABAN 5 MG TABLET PO SCH (08:32)
[2020-02-07] MEDS: INSULIN GLARGINE SOLOSTAR 100 UNITS/ML 3 ML PEN SC SCH (08:33)
--- NOTE | 2020-02-07 11:26 | Hospitalist Progress Note ---
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 The patient states he was watching his TV, when he turned his head to one side he felt very weak. He felt his arms were floating and he stood up from the chair in an effort to move to his couch when he noticed blind spots on the TV and felt extremely weak and he could not ambulate, he stayed on his couch. He felt that he could not walk to his car, 911 was called in and he was brought into the ER." -patient outside of window for TPA when admitted, patient was started on aspirin -on Stat read CTA Head/CTA Neck, day time hospitalist discussed with radiologist Clint Tong ([phone]) that there is right Posterior Cerebral Artery occlussion of the P1/P2 junction that appears to be acute -Day time hospitalist discussed with patient of his health history: He reports that he stopped taking aspirin 1 year ago because of workup for blood from possible GI bleed but he had negative colonoscopy workup. He is patient of [facility] Cardiology service and follows with Dr. Quintana. He reports that Dr. Quintana reviewed his pace maker interrogation around 2 weeks ago and that patient was in atrial fibrillation around 60% of the time but deferred to place patient on systemic anticoagulation while patient considers the options and risk s/benefits. -patient could not get Brain MRI because of pacemaker -no DVT of lower extremities on ultrasound -after discussion with cardiology service and neurology service, patient was started on Eliquis 5 mg BID on 02/04/2020. -Patient is upgraded from observation status to full admission status because of management of stroke and because PT/OT evaluations suggests that he will need inpatient rehabilitation to help improve his conditioning and walking. -as per 02/05/2020 neurology physical exam "has a pretty dense left homonymous hemianopsia on confrontation, neglect bilateral visual stimulation presented on the left side, has normal eye movements no nystagmus normal facial sensation clear speech no real drift of the left arm and leg and no cerebellar dysmetria on appropriate testing." other Neurology recommendations: He will not be able to drive a motor vehicle as he has a dense field cut with neglect and he will need to see ophthalmology after discharge for official determination of the density of his deficits. Neurology will need to see him in 4 to 6 weeks as part of the standard post stroke protocol but this could be done by telephone or tele-video and regular visits in neurology 02/07/2020 updates: patient is sleeping. no acute events on telemetry - continues to be paced rate and irregular rhythm. breathing appears comfortable. no distress. medically stable and awaiting to see if case planner can get patient to physical therapy center or not. If not today, then patient will not likely require telemetry monitoring as his heart rates and rhythms are stable and he is on Eliquis anticoagulation Presence of pacemaker -because of History of third-degree heart block Paroxysmal atrial fibrillation -metoprolol succinate 25 mg daily Hyperlipidemia -on simvastatin 20 mg qhs at home -while stroke guidelines recommend high intensity statins, the LDL is 66 (under 70) and generally good lipid panel profile so will continue home dose simvastatin 20 mg qHS Hypertension -on lisinopril 20 mg BID, metoprolol succinate 25 mg, and amlodipine 10 mg daily Diabetes Mellitus 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 medication, metformin, pioglitazone, and Tradjenta -on Lantus insulin and sliding scale insulin -HbA1c 6.7. Follow his blood sugars -will need outpatient Ophthalmology check ups for diabetes care chronic kidney disease stage III -follow renal function Gastroesophageal reflux disease -on Protonix. DVT prophylaxis: Karina : [place] [phone] Admission and Anticipated Discharge Date Admission Date: February 05, 2020 Subjective patient is sleeping. no acute events on telemetry - continues to be paced rate and irregular rhythm. breathing appears comfortable. no distress. medically stable and awaiting to see if case planner can get patient to physical therapy center or not. If not today, then patient will not likely require telemetry monitoring as his heart rates and rhythms are stable and he is on Eliquis anticoagulation Review of Systems Review of Systems: Unobtainable due to cognitive status Physical Exam Constitutional: WD/WN, vitals as above Eyes: EOM intact bilaterally ENMT: external ear and nose normal, oropharynx normal Neck: normal visual inspection Respiratory: normal respiratory effort Cardiovascular: Rate/Rhythm: + bradycardic (paced rate with rhythm of atrial fibrillation) Gastrointestinal (Abdomen): normal bowel sounds, soft, nontender, no hepatosplenomegaly Musculoskeletal: Head/Neck/Chest: normocephalic Psychiatric: patient is sleeping Results & Data Results & Data ([facility]) Vital Signs (Past 12 Hours) Vital Signs Temp Pulse Pulse Resp BP BP Pulse Ox 02/07/20 11:15 36.5 C 62 18 135/78 93 02/07/20 07:36 60 02/07/20 07:24 36.5 C 61 16 132/70 95 02/07/20 03:45 36.5 C 64 18 146/69 H 97 02/06/20 23:31 86 02/06/20 23:27 36.8 C 60 17 117/68 93
--- NOTE | 2020-02-07 16:04 | Discharge Summary ---
Date of Service February 07, 2020 Admission HPI Per Admitting Provider DATE OF ADMISSION: 02/04/2020 CHIEF COMPLAINT: Weakness. HISTORY OF PRESENT ILLNESS: This is an 84-year-old male with past medical history significant for type 2 diabetes, chronic kidney disease stage III, hyperlipidemia, third-degree AV block status post pacemaker, hypertension, GERD, who lives with his , and was brought in because of weakness in his lower extremity. The patient states he was watching his TV, when he turned his head to one side he felt very weak. He felt his arms were floating and he stood up from the chair in an effort to move to his couch when he noticed blind spots on the TV and felt extremely weak and he could not ambulate, he stayed on his couch. He felt that he could not walk to his car, 911 was called in and he was brought into the ER. His CT of the head is negative. He says symptoms, improved in the ER.On exam his strength is good in extremities. As per the ER, the patient when they tried to check his orthostatics, he stood up, he could not move his left leg, so we were called in for further workup. Currently resting comfortably and hemodynamically stable. Denies any headache. Hard of hearing. No blurred visions. No runny nose, no sore throat, no cough, no difficulty swallowing. Appetite is okay. No chest pain, no shortness of breath, no nausea, no abdominal pain. Normal bowel and bladder movements. No rash, no swelling in the legs. Before this, he used to ambulate fine at home. 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 Presence of cardiac pacemaker, because of History of third-degree heart block Discharge Exam Constitutional WD/WN, vitals as above comfortable Eyes PERRL, conjunctivae normal, anicteric sclerae EOM intact bilaterally ENMT external ear and nose normal, oropharynx normal Neck normal visual inspection Respiratory normal respiratory effort Cardiovascular Rate/Rhythm: + bradycardic (paced rate with rhythm of atrial fibrillation) Gastrointestinal (Abdomen) normal bowel sounds, soft, nontender, no hepatosplenomegaly Musculoskeletal Head/Neck/Chest: normocephalic Neurologic PERRL, EOMI, accommodation nl, no face palsy, no dysarthria moves all extremities Psychiatric A+Ox3, euthymic affect Discharge Data Allergies Allergy/AdvReac Type Severity Reaction Status Date / Time Sulfa (Sulfonamide Allergy Mild HIVES Verified 02/04/20 00:17 Antibiotics) Consultations 02/04/20 01:29 ED Decision to Admit Stat 02/04/20 03:46 Consult Case Management - Discharge Planning Routine 02/04/20 07:19 Consult Neurology Routine 02/04/20 07:58 Consult Cardiology Routine Ordered Studies 02/03/20 23:32 CT head/brain wo con Urgent 02/04/20 03:46 CT angio head w con Urgent CT angio neck with con Urgent 02/04/20 08:12 US venous doppler LE BI Routine Hospital Course (1) Stroke: 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 The patient states he was watching his TV, when he turned his head to one side he felt very weak. He felt his arms were floating and he stood up from the chair in an effort to move to his couch when he noticed blind spots on the TV and felt extremely weak and he could not ambulate, he stayed on his couch. He felt that he could not walk to his car, 911 was called in and he was brought into the ER." -patient outside of window for TPA when admitted, patient was started on aspirin -on Stat read CTA Head/CTA Neck, day time hospitalist discussed with radiologist Clint Tong ([phone]) that there is right Posterior Cerebral Artery occl ussion of the P1/P2 junction that appears to be acute -Day time hospitalist discussed with patient of his health history: He reports that he stopped taking aspirin 1 year ago because of workup for blood from possible GI bleed but he had negative colonoscopy workup. He is patient of [facility] Cardiology service and follows with Dr. Quintana. He reports that Dr. Quintana reviewed his pace maker interrogation around 2 weeks ago and that patient was in atrial fibrillation around 60% of the time but deferred to place patient on systemic anticoagulation while patient considers the options and risks/benefits. -patient could not get Brain MRI because of pacemaker -no DVT of lower extremities on ultrasound -after discussion with cardiology service and neurology service, patient was started on Eliquis 5 mg BID on 02/04/2020. -Patient is upgraded from observation status to full admission status because of management of stroke and because PT/OT evaluations suggests that he will need inpatient rehabilitation to help improve his conditioning and walking. -as per 02/05/2020 neurology physical exam "has a pretty dense left homonymous hemianopsia on confrontation, neglect bilateral visual stimulation presented on the left side, has normal eye movements no nystagmus normal facial sensation clear speech no real drift of the left arm and leg and no cerebellar dysmetria on appropriate testing." other Neurology recommendations: He will not be able to drive a motor vehicle as he has a dense field cut with neglect and he will need to see ophthalmology after discharge for official determination of the density of his deficits. Neurology will need to see him in 4 to 6 weeks as part of the standard post stroke protocol but this could be done by telephone or tele-video and regular visits in neurology 02/07/2020 updates: patient is sleeping. no acute events on telemetry - continues to be paced rate and irregular rhythm. breathing appears comfortable. no distress. medically stable and awaiting to see if case hardener can get patient to physical therapy center or not. If not today, then patient will not likely require telemetry monitoring as his heart rates and rhythms are stable and he is on Eliquis anticoagulation Presence of pacemaker -because of History of third-degree heart block Paroxysmal atrial fibrillation -metoprolol succinate 25 mg daily Hyperlipidemia -on simvastatin 20 mg qhs at home -while stroke guidelines recommend high intensity statins, the LDL is 66 (under 70) and generally good lipid panel profile so will continue home dose simvastatin 20 mg qHS Hypertension -on lisinopril 20 mg BID, metoprolol succinate 25 mg, and amlodipine 10 mg daily Diabetes Mellitus 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 medication, metformin, pioglitazone, and Tradjenta -on Lantus insulin and sliding scale insulin -HbA1c 6.7. Follow his blood sugars -will need outpatient Ophthalmology check ups for diabetes care chronic kidney disease stage III -follow renal function Gastroesophageal reflux disease -on Protonix. DVT prophylaxis: Karina : [place] [phone] Discharge to [facility] for physical rehabilitation. Patient will need CBC when follow up with primary care doctor because of being on Apixaban (Eliquis) 5 mg twice a day [facility] was called to schedule appointment in 4 to 6 week followup [facility] Neurology clinic in [facility] Patient will need to be seen by an ophthalmology clinic upcoming scheduled clinic appointments 02/20/2020 11:00 AM Provider Breezy Crane III, MD Department General Internal Medicine [facility] 03/05/2020 3:30 PM Provider Narciso Quintana Jr., Department Cardiology, [facility] 03/20/2020 8:00 AM Provider Breezy Crane III, MD Department Family Practice [facility] 04/20/2020 8:30 AM Provider Jonathan Saavedra [facility] Department Cardiology, [facility] Total Time Total Time Spent Total Time Spent (In Minutes): 40 minutes Total Time Includes: Examination of the Patient, Discharge Planning, Medication Reconciliation and Communication With Other Providers Discharge Plan Discharge Items Patient Disposition: Transfer Inpatient Rehab Fac Reason For Visit: WEAKNESS Discharge Diagnosis: 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 Patient will need CBC when follow up with primary care doctor because of being on Apixaban (Eliquis) 5 mg twice a day [facility] was called to schedule appointment in 4 to 6 week followup [facility] Neurology clinic in [facility] Patient will need to be seen by an ophthalmology clinic upcoming scheduled clinic appointments 02/20/2020 11:00 AM Provider Breezy Crane III, MD Department General Internal Medicine [facility] 03/05/2020 3:30 PM Provider Narciso Quintana Jr., Department Cardiology, [facility] 03/20/2020 8:00 AM Provider Breezy Crane III, MD Department Family Practice [facility] 04/20/2020 8:30 AM Provider [facility] Department Cardiology, [facility] Janel Security Systems Manager Provider Instructions: other Neurology recommendations He will not be able to drive a motor vehicle as he has a dense field cut with neglect and he will need to see ophthalmology after discharge for official determination of the density of his deficits Neurology will need to see him in 4 to 6 weeks as part of the standard post stroke protocol but this could be done by telephone or tele-video and regular visits in neurology Pending Studies at Discharge: No Stand-Alone Forms: My ralali Skilled Items Patient informed of condition?: Yes DNR: No Discharge Level of Care: Acute rehab Communicable Disease: No Discharge Prognosis: Stable Lines: None Urinary Catheter: No Medications and DC Order Prescriptions: New sennosides [Senokot] 8.6 mg Tablet 8.6 mg PO QAM 30 Days Qty: 30 RF: 0 Eliquis 5 mg Tablet 5 mg PO BID 30 Days Qty: 60 RF: 0 Continued ferrous sulfate [Iron (ferrous sulfate)] 325 mg (65 mg iron) Tablet 325 mg PO QAM RF: 0 lisinopril 20 mg Tablet 20 mg PO BID RF: 0 cyanocobalamin (vitamin B-12) 1,000 mcg Tablet 1,000 mcg PO QAM RF: 0 pioglitazone 45 mg Tablet 45 mg PO QAM RF: 0 amlodipine 10 mg Tablet 10 mg PO QAM RF: 0 pantoprazole 40 mg Tablet,Delayed Release (Dr/Ec) 40 mg PO QAM RF: 0 simvastatin 20 mg Tablet 20 mg PO HS RF: 0 metformin 1,000 mg Tablet 1,000 mg PO BID RF: 0 Mucinex DM 30-600 mg Tablet Extended Release 12 Hr 1 tab PO BID PRN (Reason: Cough) RF: 0 albuterol sulfate [ProAir HFA] 90 mcg/actuation Hfa Aerosol Inhaler 2 puff INHALATION Q6H PRN (Reason: Shortness Of Breath) RF: 0 fluticasone propionate [Flonase Allergy Relief] 50 mcg/actuation [place],Suspension 2 spray INTRANASAL DAILY PRN (Reason: Allergy Symptoms) RF: 0 cholecalciferol (vitamin D3) [Vitamin D3] 1,000 unit Tablet 1,000 unit PO QAM RF: 0 Eucerin Cream 1 applic TOPICAL UD PRN (Reason: Rash) RF: 0 linagliptin 5 mg Tablet 5 mg PO QAM RF: 0 trazodone 50 mg tablet 50 mg PO HS RF: 0 metoprolol succinate 25 mg tablet extended release 24 hr 25 mg PO DAILY RF: 0 Discharge Orders: Discharge Order (Routine); Ordered 02/07/20 Ordered By: Jose Antonio Hairston Admission Data Admit Date/Time: 02/05/20 07:13 Attending Provider: Jose Antonio Hairston Admit Provider: Sang Tolentino Primary Care Provider: Breezy Crane Other Providers: Luis Armando Narayanan at [place] ; [facility], ; [facility] ; Sang Tolentino ; Breezy Johansen ; Eliu Mar
== END 2020-02-07 16:40 | DRG 65 ==
LOC: 2S 23:10 → ED 23:10 → 2S 02-04 03:19 → 2N 02-07 14:13

== ENCOUNTER 2025-05-15 11:47 | Inpatient (IN) ==
--- NOTE | 2025-05-15 12:34 | Emergency Department Note ---
Impression & Plan SBO (small bowel obstruction) Admission ED Provider Note HPI: History obtained from patient. The patient is a 89-year-old gentleman with history of stroke, paroxysmal atrial fibrillation status post pacemaker, currently on Eliquis, history of partial bowel resection in the 1980s, who presents to the emergency department with a chief complaint of upper abdominal pain and nausea. Patient states the symptoms have been relatively persistent since last night after he ate dinner. Patient denies any vomiting but states he does remain nauseous. Patient states he still does have some pain in his upper abdomen. On arrival here to the ED the patient is hemodynamically stable, he appears to be in no acute distress on my initial assessment. ROS: - Per HPI Differential Diagnosis: Acute gastritis, acute pancreatitis, acute cholecystitis, small bowel obstruction, viral gastroenteritis, esophagitis, amongst other potential pathologies. *Outpatient medications and allergy history reviewed. 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 Lab work shows no leukocytosis, hemoglobin is normal, platelet count is normal, CMP does not show any evidence of any critical findings. Lactic acid is 2.1, troponin is negative, EKG shows a paced rhythm without any acute ischemic changes per my interpretation. Chest x-ray does not show any evidence of any acute disease. CT imaging of the abdomen and pelvis was obtained that shows evidence of a small bowel obstruction. Patient has some nausea here but he has not had any active vomiting therefore will defer NG tube placement at this time. Patient was given a fluid bolus here in the ED as well as some Zofran, he states he does feel improved on my reassessment. Patient was placed on maintenance fluids and made n.p.o., patient is in agreement for admission. I discussed the patient's presentation with the on-call hospitalist, Dr. Tolentino, and the patient was placed for admission in stable condition. Consultants/Discussions held with other healthcare providers: - Hospitalist, Dr. Tolentino Disposition discussion held by myself with: - Patient Diagnosis: 1. Small bowel obstruction, acute 2. Upper abdominal pain, acute 3. Nausea, acute 4. Elevated lactic acid level, acute Disposition: Admission Cash Cohen DO Emergency Medicine Past Med/Surg History Problem List (Updated 05/15/25 @ 19:46 by Cash Cohen DO) SBO (small bowel obstruction) (Acute) SBO (small bowel obstruction) Prepatellar bursitis, left knee Left knee DJD Iron deficiency anemia due to chronic blood loss Chronic GI bleeding Paroxysmal atrial fibrillation Pacemaker 2012 Med[employer]onic ADD RL 1 Acute cerebrovascular accident (Acute) Stroke History of partial knee replacement Laceration of thumb with damage to nail Laceration of thumb with tendon involvement LLQ abdominal pain (Acute) Medical History History of colon polyps Diabetes mellitus, type 2 Hearing deficit Hypertension Hyperlipidemia Irregular heart rate prior to pacemaker placement History of bronchitis reason for inhaler Surgical History Status post right partial knee replacement History of left inguinal hernia repair History of bowel resection 1985 History of appendectomy with bowel resection History of colonoscopy History of esophagogastroduodenoscopy (EGD) History of wisdom tooth extraction History of tonsillectomy and adenoidectomy History of phacoemulsification of cataract of both eyes with intraocular lens implantation Family History Brother Family history of diabetes mellitus Mother Family hx colonic polyps Other No family history of adverse response to anesthesia Social History Smoking Status: Former smoker Second Hand Exposure: Yes (father smoked); Do You Dip or Chew Tobacco: No; Hx Alcohol Use: No Hx Substance Use: No Preferred Language: Kinyarwanda Communication Ability: Effective Wood Gouger Required: No Beliefs That Will Affect Care: None marital status: Current Living Situation: Spouse current occupational status: retired Feels Safe at Home: Yes Assistive Devices: Oxygen - Continuous and Walker Allergies Allergies Allergy/AdvReac Type Severity Reaction Status Date / Time Sulfa (Sulfonamide Allergy Mild HIVES Verified 09/19/24 10:08 Antibiotics) Home Meds Home Medications Medication Instructions Recorded Confirmed amlodipine 10 mg tablet 10 mg PO QAM 03/15/19 05/15/25 cholecalciferol (vitamin D3) 25 1,000 unit PO QAM 03/15/19 05/15/25 mcg (1,000 unit) tablet (Vitamin D3) cyanocobalamin (vitamin B-12) 1,000 mcg PO QAM 03/15/19 05/15/25 1,000 mcg tablet ferrous sulfate 325 mg (65 mg 325 mg PO QAM 03/15/19 05/15/25 iron) tablet (Iron (ferrous sulfate)) fluticasone propionate 50 2 spray intranasal DAILY PRN 03/15/19 05/15/25 mcg/actuation nasal Allergy Symptoms spray,suspension (Flonase Allergy Relief) linagliptin 5 mg tablet 5 mg PO QAM 03/15/19 05/15/25 lisinopril 20 mg tablet 20 mg PO BID 03/15/19 05/15/25 pantoprazole 40 mg tablet,delayed 40 mg PO QAM 03/15/19 05/15/25 release simvastatin 20 mg tablet 20 mg PO HS 03/15/19 05/15/25 metoprolol succinate 25 mg 25 mg PO BID 02/04/20 05/15/25 tablet,extended release 24 hr trazodone 50 mg tablet 50 mg PO HS 02/04/20 05/15/25 alendronate 70 mg tablet 70 mg PO WK 12/04/22 05/15/25 apixaban 5 mg tablet (Eliquis) 5 mg PO BID 12/04/22 05/15/25 azelastine 137 mcg (0.1 %) nasal 1 spray intranasal AMHS 12/04/22 05/15/25 spray clobetasol 0.05 % topical ointment 1 applic topical BID PRN leg & 12/04/22 05/15/25 trunk rash empagliflozin 25 mg tablet 25 mg PO DAILY 12/04/22 05/15/25 (Jardiance) furosemide 20 mg tablet 0 mg PO DAILY PRN swelling 12/04/22 05/15/25 metformin 500 mg tablet 750 mg PO BIDM 12/04/22 05/15/25 polyethylene glycol 3350 17 17 g PO QAM 12/04/22 05/15/25 gram/dose oral powder (Miralax) Previous Rx's Medication Instructions Recorded glycerin (adult) 1 supp CO BID PRN constipation #12 12/04/22 ea Results & Data (ED) Vital Signs Vital Signs - 24 hr 05/15/25 12:16 05/15/25 12:48 05/15/25 12:48 Temperature 36.6 C Temperature Source Oral Pulse Rate 54 L Respiratory Rate 17 18 Blood Pressure 133/56 L Blood Pressure Mean 81 Pulse Oximetry 95 96 Oxygen Delivery Method Room Air Room Air Sepsis Recent Fever Within 48 Hours No Sepsis New/Unexplained Change in Mental Status N/A Sepsis Action Taken by Nursing No Action Required 05/15/25 13:09 Temperature Temperature Source Pulse Rate 79 Respiratory Rate Blood Pressure Blood Pressure Mean Pulse Oximetry Oxygen Delivery Method Sepsis Recent Fever Within 48 Hours Sepsis New/Unexplained Change in Mental Status Sepsis Action Taken by Nursing Laboratory Data 05/15/25 12:36 05/15/25 12:36 Lab Results 05/15/25 05/15/25 Range/Units 12:36 15:20 WBC 9.76 (4.8-10.8) K/ul RBC 5.68 (4.70-6.10) M/uL Hgb 17.8 (14.0-18.0) g/dl Hct 51.5 (42.0-52.0) % MCV 90.7 (80.0-100.0) fL MCH 31.3 (25.0-34.0) pg MCHC 34.6 (32.0-36.0) g/dL RDW Std Deviation 46.0 (36.4-46.3) fL RDW Coeff of [place] 13.6 (11.5-14.5) % Plt Count 212 (130-400) K/uL MPV 11.0 (9.4-12.4) fL Immature Gran % (Auto) 0.3 % Neut % (Auto) 80.7 % Lymph % (Auto) 12.0 % [place] % (Auto) 6.5 % Eos % (Auto) 0.2 % Baso % (Auto) 0.3 % Neut # (Auto) 7.88 H (1.40-6.50) K/uL Lymph # (Auto) 1.17 L (1.20-3.40) K/uL [place] # (Auto) 0.63 H (0.11-0.59) K/uL Eos # (Auto) 0.02 (0.00-0.50) K/uL Baso # (Auto) 0.03 (0.00-0.20) K/uL Immature Gran # (Auto) 0.03 (0.01-0.20) K/uL PT 11.6 (9.0-12.0) Seconds INR 1.1 (0.9-1.1) Sodium 138 (136-145) mmol/L Potassium 4.3 (3.5-5.1) mmol/L Chloride 102 (98-107) mmol/L Carbon Dioxide 27 (21-32) mmol/L Anion Gap 9 (3-11) BUN 14 (6-23) mg/dl Creatinine 1.26 (0.6-1.4) mg/dl Est Cr Clr Drug Dosing Not Reportable eGFR 54.52 BUN/Creatinine Ratio 11.1 (10-20) Glucose 160 H (70-99(Fasting)) mg/dl Lactate 2.1 H* (0.4-2.0) mmol/L Calcium 9.9 (8.6-10.3) mg/dl Total Bilirubin 0.9 (0.2-1.0) mg/dl AST 17 (13-39) U/L ALT 10 (7-52) U/L Alkaline Phosphatase 54 (34-104) U/L Troponin I High Sens 5.8 (0-20) pg/ml Total Protein 7.6 (6.0-8.3) gm/dl Albumin 4.1 (3.4-5.0) gm/dl Globulin 3.5 (2.5-4.0) gm/dl Albumin/Globulin Ratio 1.2 (0.9-2) Lipase 21 (11-82) U/L Administered Medications Sodium Chloride (Nss) 1,000 mls @ 100 mls/hr IV .Q10H DEIRDRE Stop: 05/18/25 18:11 Last Admin: 05/15/25 18:35 Dose: 100 mls/hr Documented By: ANT Insulin Aspart (Insulin Aspart Per Unit Charge) 0 units SC Q6 DEIRDRE Stop: 06/14/25 18:11 Last Admin: 05/15/25 18:35 Dose: Not Given Documented By: ANT Discontinued Medications Al Hydrox/Mg Hydrox/Simethicone (Aluminum/Magnesium/Simeth (Maalox Max) 30 Ml Udc) 30 ml PO NOW STA Stop: 05/15/25 18:47 Last Admin: 05/15/25 18:59 Dose: 30 ml Documented By: ANT Heparin Sodium/Dextrose (Heparin Iv Adult Wt-Based Low-Dose *No* Initial Bolus Protocol) 1 each IV ONE STA; Protocol Stop: 05/15/25 18:13 Last Admin: 05/15/25 19:36 Dose: Not Given Documented By: ANT Sodium Chloride (Nss) 500 mls @ 999 mls/hr IV .Q31M STA Stop: 05/15/25 12:58 Last Infusion: 05/15/25 15:56 Dose: Infused Documented By: Admin: 05/15/25 12:41 Dose: 999 mls/hr Documented By: NRB Sodium Chloride (Nss) 1,000 mls @ 150 mls/hr IV .Q6H40M ONE Stop: 05/15/25 21:32 Last Infusion: 05/15/25 18:36 Dose: Infused Documented By: Admin: 05/15/25 15:49 Dose: 150 mls/hr Documented By: ANT Famotidine (Pepcid 20mg Iv Push) 20 mg in 5 mls @ 2.5 mls/min IV NOW STA Stop: 05/15/25 15:35 Last Admin: 05/15/25 15:49 Dose: 2.5 mls/min Documented By: ANT Pantoprazole Sodium (Protonix) 40 mg in 10 mls @ 5 mls/min IV NOW ONE Stop: 05/15/25 18:46 Last Admin: 05/15/25 18:59 Dose: 5 mls/min Documented By: ANT Ioversol (Optiray 320 100ml) 94 ml IV ONCE ONE Stop: 05/15/25 14:04 Last Admin: 05/15/25 14:03 Dose: 94 ml Documented By: JAR Morphine Sulfate (Morphine Sulfate 2 Mg/Ml Carp) 2 mg IV NOW STA Stop: 05/15/25 15:36 Last Admin: 05/15/25 15:48 Dose: 2 mg Documented By: ANT Ondansetron HCl (Ondansetron Inj 2 Mg/Ml 2 Ml Vial) 4 mg IV NOW STA Stop: 05/15/25 15:36 Last Admin: 05/15/25 15:48 Dose: 4 mg Documented By: ANT Imaging Data Radiologist's Impression: Chest X-Ray 05/15/25 12:29 XR chest 1V portable CLINICAL HISTORY: upper abd pain COMPARISON STUDY: 02/06/2019 FINDINGS: Stable pacemaker. Stable cardiomegaly without pulmonary vascular congestion. No consolidation or pleural effusion. No pneumothorax. IMPRESSION: No acute findings. ACT 112: Negative or not required by law. Electronically signed by: Narciso Madden M.D. 05/15/2025 1:22 PM Abdomen/Pelvis CT 05/15/25 12:[address] WITH IV CONTRAST CT DOSE: 1465.23 mGy.cm HISTORY: upper abd pain TECHNIQUE: Multiaxial CT images of the abdomen and pelvis were performed following the IV administration of 90 cc of Optiray, A dose lowering technique was utilized adhering to the principles of ALARA. COMPARISON STUDY: 12/04/2022 FINDINGS: ABDOMEN: Stable central liver cyst and stable mild biliary dilatation at the left hepatic lobe. Gallbladder is surgically absent. Spleen, pancreas, and adrenal glands are unremarkable. There is a tiny hiatal hernia. There are a few small cysts at the kidneys, stable. There is no hydronephrosis bilaterally. There are scattered atherosclerotic calcifications. Pelvis: Prostate is enlarged. Urinary bladder is mildly distended. Stable right hemicolectomy. There is diffuse small bowel distention measuring up to 4 cm diameter with transition zone just proximal to the anastomosis. There is no colonic distention. No free fluid, free air, or abscess. No enlarged adenopathy. Osseous structures: There is lower lumbar degenerative disc disease. There are mild degenerative changes of the hips. IMPRESSION: 1. Findings consistent with small bowel obstruction with the transition zone at the distal small bowel just proximal to the right hemicolectomy anastomosis. 2. Otherwise as described. ACT 112: Negative or not required by law. The above report was generated using voice recognition software. It may contain grammatical, syntax or spelling errors. Electronically signed by: Narciso Madden M.D. 05/15/2025 2:27 PM Discharge Plan Visit Data Chief Complaint: Abdominal Pain Stated Complaint: ABDOMINIAL PAIN ED Provider: Cash Cohen Discharge Problem: SBO (small bowel obstruction) Patient Disposition: Admitted As Inpatient Condition: Fair Discharge Instructions Interventions: ED Discharge Assessment Last Done: 05/15/25 18:12
[2025-05-15] MEDS: SODIUM CHLORIDE 0.9% 500 ML IV STA (12:41)
--- NOTE | 2025-05-15 13:24 | XRay Report ---
XR chest 1V portable CLINICAL HISTORY: upper abd pain COMPARISON STUDY: 02/06/2019 FINDINGS: Stable pacemaker. Stable cardiomegaly without pulmonary vascular congestion. No consolidati on or pleural effusion. No pneumothorax. IMPRESSION: No acute findings. ACT 112: Negative or not required by law. Electronically signed by: Narciso Madden M.D. 05/15/2025 1:22 PM
[2025-05-15 13:39] LABS: Alanine Aminotransferase 10 U/L (7-52); Albumin Globulin Ratio 1.2 (0.9-2); Alkaline Phosphatase 54 U/L (34-104); Anion Gap 9 (3-11); Bilirubin,Total 0.9 mg/dl (0.2-1.0); Blood Urea Nitrogen 14 mg/dl (6-23); Calcium 9.9 mg/dl (8.6-10.3); Carbon Dioxide 27 mmol/L (21-32); Chloride 102 mmol/L (98-107); Globulin 3.5 gm/dl (2.5-4.0); Glucose 160 mg/dl (70-99(Fasting)); Lipase 21 U/L (11-82); Potassium 4.3 mmol/L (3.5-5.1); Sodium 138 mmol/L (136-145); Total Protein 7.6 gm/dl (6.0-8.3)
[2025-05-15 13:44] LABS: Hematocrit (blood only) 51.5 % (42.0-52.0); Hemoglobin 17.8 g/dl (14.0-18.0); Mean Corpuscular Hemoglobin 31.3 pg (25.0-34.0); Mean Corpuscular Volume 90.7 fL (80.0-100.0); Platelet Count 212 K/uL (130-400); RDW Standard Deviation 46.0 fL (36.4-46.3); Red Blood Count 5.68 M/uL (4.70-6.10); White Blood Count 9.76 K/ul (4.8-10.8)
[2025-05-15 14:01] LABS: Immature Granulocytes # (auto) 0.03 K/uL (0.01-0.20); Immature Granulocytes % (auto) 0.3 %
[2025-05-15] MEDS: OPTIRAY 320 100ml IV ONE (14:03)
--- NOTE | 2025-05-15 14:29 | CT Scan Report ---
ABDOMEN AND PELVIS CT WITH IV CONTRAST CT DOSE: 1465.23 mGy.cm HISTORY: upper abd pain TECHNIQUE: Multiaxial CT images of the abdomen and pelvis were performed following the IV administrat ion of 90 cc of Optiray, A dose lowering technique was utilized adhering to the principles of ALARA. COMPARISON STUDY: 12/04/2022 FINDINGS: ABDOMEN: Stable central liver cyst and stable mild biliary dilatation at the left hepatic lobe. Gallb ladder is surgically absent. Spleen, pancreas, and adrenal glands are unremarkable. There is a tiny h iatal hernia. There are a few small cysts at the kidneys, stable. There is no hydronephrosis bilatera lly. There are scattered atherosclerotic calcifications. Pelvis: Prostate is enlarged. Urinary bladder is mildly distended. Stable right hemicolectomy. There is diffuse small bowel distention measuring up to 4 cm diameter with transition zone just proximal to the anastomosis. There is no colonic distention. No free fluid, free air, or abscess. No enlarged ad enopathy. Osseous structures: There is lower lumbar degenerative disc disease. There are mild degenerative deleon ges of the hips. IMPRESSION: 1. Findings consistent with small bowel obstruction with the transition zone at the distal small clementina l just proximal to the right hemicolectomy anastomosis. 2. Otherwise as described. ACT 112: Negative or not required by law. The above report was generated using voice recognition software. It may contain grammatical, syntax o r spelling errors. Electronically signed by: Narciso Madden M.D. 05/15/2025 2:27 PM
[2025-05-15] MEDS: MoRPHine SULFATE 2 MG/ML CARP IV STA (15:48)
[2025-05-15] MEDS: ONDANSETRON INJ 2 MG/ML 2 ML VIAL IV STA (15:48)
[2025-05-15] MEDS: SODIUM CHLORIDE 0.9% 1,000 ML IV ONE (15:49)
[2025-05-15] MEDS: FAMOTIDINE 20MG IV PUSH 20 MG/5 ML SYR IV STA (15:49)
--- NOTE | 2025-05-15 16:24 | History & Physical Report ---
Date of Service May 15, 2025 Assessment & Plan (1) SBO (small bowel obstruction): Plan: 89-year-old male with past medical history significant for type 2 diabetes, CKD stage III, hyperlipidemia, third-degree heart block status post pacemaker, paroxysmal atrial fibrillation, hypertension, GERD, osteoporosis, history of hemiplegia/ hemiparesis following CVA on left side ambulates with cane who lives at home with his comes because of abdominal pain and nausea and found to have small bowel obstruction. Patient states yesterday he was having some abdominal discomfort. He went to his daughter's place and had dinner. In the morning he woke up at 4 AM with worsening abdominal pain which prompted him to come to the ER. Currently also having nausea. Denies any vomiting. Had a small bowel movement in the morning. Currently not passing gas. No headache or dizziness. Vision is okay. Somewhat hard of hearing. No runny nose. Has some cough and attributes to his sinuses. No difficulty swallowing. No chest pain or shortness of breath. Micturating okay. Hemodynamics are okay. Small bowel obstruction Came with abdominal pain and nausea. CAT scan showing small bowel obstruction No vomiting If worsening will place him in on NG tube N.p.o., IV fluids, IV antiemetics as needed, IV pain meds as needed Lactic acid 2.1. No fevers. No leukocytosis. Abdomen soft Repeat lactic acid level 1.0 Surgery consult for further recommendations History of A-fib Currently metoprolol succinate if able to take p.o. Will hold Eliquis and place on IV heparin IV Lopressor as needed Will monitor History of heart failure with preserved ejection fraction Holding Lasix Getting fluids Will monitor for volume overload History of CVA Left-sided weakness On statin Holding Eliquis and placing on IV heparin for now PT OT when stable Hypertension Continue home Lisinopril, amlodipine and metoprolol succinate if able to take p.o. We will monitor Diabetes Hold metformin and linagliptin and Jardiance Sliding scale We will monitor Hyperlipidemia Statin if able to take p.o. GERD IV Protonix DVT prophylaxis IV heparin Disposition Med/telemetry Full code History of Present Illness Chief Complaint: Abdominal pain Primary Care Provider: Breezy Crane MD 89-year-old male with past medical history significant for type 2 diabetes, CKD stage III, hyperlipidemia, third-degree heart block status post pacemaker, paroxysmal atrial fibrillation, hypertension, GERD, osteoporosis, history of hemiplegia/ hemiparesis following CVA on left side ambulates with cane who lives at home with his comes because of abdominal pain and nausea and found to have small bowel obstruction. Patient states yesterday he was having some abdominal discomfort. He went to his daughter's place and had dinner. In the morning he woke up at 4 AM with worsening abdominal pain which prompted him to come to the ER. Currently also having nausea. Denies any vomiting. Had a small bowel movement in the morning. Currently not passing gas. No headache or dizziness. Vision is okay. Somewhat hard of hearing. No runny nose. Has some cough and attributes to his sinuses. No difficulty swallowing. No chest pain or shortness of breath. Micturating okay. Hemodynamics are okay. Past medical history. As mentioned above. Past surgical history. Colonoscopy. Dental surgery. EGD. Status post pacemaker. 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 Cataracts. Cholecystectomy. Open left repair of inguinal hernia in 2012 with plug and patch mesh. Social history. . Quit smoking 1989. Smoked 1.5 pack a day for 30 years. No alcohol use. No drug use. Family history. Sister has rheumatoid arthritis. Father had heart disorder. Stroke. Aneurysm. Mother had heart disorder. Brother had hypertension. Allergies Allergy/AdvReac Type Severity Reaction Status Date / Time Sulfa (Sulfonamide Allergy Mild HIVES Verified 09/19/24 10:08 Antibiotics) Home Medications Medication Instructions Recorded Confirmed Type amlodipine 10 mg tablet 10 mg PO QAM 03/15/19 05/15/25 History cholecalciferol (vitamin D3) 25 1,000 unit PO QAM 03/15/19 05/15/25 History mcg (1,000 unit) tablet (Vitamin D3) cyanocobalamin (vitamin B-12) 1,000 mcg PO QAM 03/15/19 05/15/25 History 1,000 mcg tablet ferrous sulfate 325 mg (65 mg 325 mg PO QAM 03/15/19 05/15/25 History iron) tablet (Iron (ferrous sulfate)) fluticasone propionate 50 2 spray intranasal DAILY PRN 03/15/19 05/15/25 History mcg/actuation nasal Allergy Symptoms spray,suspension (Flonase Allergy Relief) linagliptin 5 mg tablet 5 mg PO QAM 03/15/19 05/15/25 History lisinopril 20 mg tablet 20 mg PO BID 03/15/19 05/15/25 History pantoprazole 40 mg tablet,delayed 40 mg PO QAM 03/15/19 05/15/25 History release simvastatin 20 mg tablet 20 mg PO HS 03/15/19 05/15/25 History metoprolol succinate 25 mg 25 mg PO BID 02/04/20 05/15/25 History tablet,extended release 24 hr trazodone 50 mg tablet 50 mg PO HS 02/04/20 05/15/25 History alendronate 70 mg tablet 70 mg PO WK 12/04/22 05/15/25 History apixaban 5 mg tablet (Eliquis) 5 mg PO BID 12/04/22 05/15/25 History azelastine 137 mcg (0.1 %) nasal 1 spray intranasal AMHS 12/04/22 05/15/25 History spray clobetasol 0.05 % topical ointment 1 applic topical BID PRN leg & 12/04/22 05/15/25 History trunk rash empagliflozin 25 mg tablet 25 mg PO DAILY 12/04/22 05/15/25 History (Jardiance) furosemide 20 mg tablet 0 mg PO DAILY PRN swelling 12/04/22 05/15/25 History glycerin (adult) 1 supp [place] BID PRN constipation #12 12/04/22 05/15/25 Rx ea metformin 500 mg tablet 750 mg PO BIDM 12/04/22 05/15/25 History polyethylene glycol 3350 17 17 g PO QAM 12/04/22 05/15/25 History gram/dose oral powder (Miralax) Past Med/Surg History Problem List (Updated 05/15/25 @ 19:46 by Cash Cohen DO) SBO (small bowel obstruction) (Acute) SBO (small bowel obstruction) Prepatellar bursitis, left knee Left knee DJD Iron deficiency anemia due to chronic blood loss Chronic GI bleeding Paroxysmal atrial fibrillation Pacemaker 2012 [employer] ADD RL 1 Acute cerebrovascular accident (Acute) Stroke History of partial knee replacement Laceration of thumb with damage to nail Laceration of thumb with tendon involvement LLQ abdominal pain (Acute) Medical History History of colon polyps Diabetes mellitus, type 2 Hearing deficit Hypertension Hyperlipidemia Irregular heart rate prior to pacemaker placement History of bronchitis reason for inhaler Surgical History Status post right partial knee replacement History of left inguinal hernia repair History of bowel resection 1985 History of appendectomy with bowel resection History of colonoscopy History of esophagogastroduodenoscopy (EGD) History of wisdom tooth extraction History of tonsillectomy and adenoidectomy History of phacoemulsification of cataract of both eyes with intraocular lens implantation Family History Brother Family history of diabetes mellitus Mother Family hx colonic polyps Other No family history of adverse response to anesthesia Social History Smoking Status: Former smoker Smoking End Date: "26 years ago"; Second Hand Exposure: No; Do You Dip or Chew Tobacco: No; Hx Alcohol Use: No Hx Substance Use: No Preferred Language: Indonesian Communication Ability: Effective 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 ENT- oropharynx clear Neck- supple, no JVD. Lungs- clear to auscultation no wheezing or crackles Heart- regular rhythm; no murmur, no gallop. Abdomen-sluggish bowel sounds, soft, mild epigastric tenderness, no distension Extremities- no pretibial edema, no erythema seen Neuro- alert, oriented PERRL, no facial palsy; no dysarthria; moves extremities Results & Data Results & Data Vital Signs (Past 12 Hours) Vital Signs Temp Pulse Resp BP Pulse Ox O2 Del Method 05/15/25 13:09 79 05/15/25 12:48 96 Room Air 05/15/25 12:48 18 05/15/25 12:16 36.6 C 54 L 17 133/56 L 95 Room Air Diagnostic Findings Laboratory Results WBC 9.76 K/ul (4.8-10.8) 05/15/25 12:36 RBC 5.68 M/uL (4.70-6.10) 05/15/25 12:36 Hgb 17.8 g/dl (14.0-18.0) 05/15/25 12:36 Hct 51.5 % (42.0-52.0) 05/15/25 12:36 MCV 90.7 fL (80.0-100.0) 05/15/25 12:36 MCH 31.3 pg (25.0-34.0) 05/15/25 12:36 MCHC 34.6 g/dL (32.0-36.0) 05/15/25 12:36 RDW Std Deviation 46.0 fL (36.4-46.3) 05/15/25 12:36 RDW Coeff of [place] 13.6 % (11.5-14.5) 05/15/25 12:36 Plt Count 212 K/uL (130-400) 05/15/25 12:36 MPV 11.0 fL (9.4-12.4) 05/15/25 12:36 Immature Gran % (Auto) 0.3 % 05/15/25 12:36 Neut % (Auto) 80.7 % 05/15/25 12:36 Lymph % (Auto) 12.0 % 05/15/25 12:36 [place] % (Auto) 6.5 % 05/15/25 12:36 Eos % (Auto) 0.2 % 05/15/25 12:36 Baso % (Auto) 0.3 % 05/15/25 12:36 Neut # (Auto) 7.88 K/uL (1.40-6.50) H 05/15/25 12:36 Lymph # (Auto) 1.17 K/uL (1.20-3.40) L 05/15/25 12:36 [place] # (Auto) 0.63 K/uL (0.11-0.59) H 05/15/25 12:36 Eos # (Auto) 0.02 K/uL (0.00-0.50) 05/15/25 12:36 Baso # (Auto) 0.03 K/uL (0.00-0.20) 05/15/25 12:36 Immature Gran # (Auto) 0.03 K/uL (0.01-0.20) 05/15/25 12:36 Sodium 138 mmol/L (136-145) 05/15/25 12:36 Potassium 4.3 mmol/L (3.5-5.1) 05/15/25 12:36 Chloride 102 mmol/L (98-107) 05/15/25 12:36 Carbon Dioxide 27 mmol/L (21-32) 05/15/25 12:36 Anion Gap 9 (3-11) 05/15/25 12:36 BUN 14 mg/dl (6-23) 05/15/25 12:36 Creatinine 1.26 mg/dl (0.6-1.4) 05/15/25 12:36 Est Cr Clr Drug Dosing Not Reportable 05/15/25 12:36 eGFR 54.52 05/15/25 12:36 BUN/Creatinine Ratio 11.1 (10-20) 05/15/25 12:36 Glucose 160 mg/dl (70-99(Fasting)) H 05/15/25 12:36 Lactate 2.1 mmol/L (0.4-2.0) H* 05/15/25 15:20 Calcium 9.9 mg/dl (8.6-10.3) 05/15/25 12:36 Total Bilirubin 0.9 mg/dl (0.2-1.0) 05/15/25 12:36 AST 17 U/L (13-39) 05/15/25 12:36 ALT 10 U/L (7-52) 05/15/25 12:36 Alkaline Phosphatase 54 U/L (34-104) 05/15/25 12:36 Troponin I High Sens 5.8 pg/ml (0-20) 05/15/25 12:36 Total Protein 7.6 gm/dl (6.0-8.3) 05/15/25 12:36 Albumin 4.1 gm/dl (3.4-5.0) 05/15/25 12:36 Globulin 3.5 gm/dl (2.5-4.0) 05/15/25 12:36 Albumin/Globulin Ratio 1.2 (0.9-2) 05/15/25 12:36 Lipase 21 U/L (11-82) 05/15/25 12:36 Impressions Chest X-Ray 05/15/25 12:29 XR chest 1V portable CLINICAL HISTORY: upper abd pain COMPARISON STUDY: 02/06/2019 FINDINGS: Stable pacemaker. Stable cardiomegaly without pulmonary vascular congestion. No consolidation or pleural effusion. No pneumothorax. IMPRESSION: No acute findings. ACT 112: Negative or not required by law. Electronically signed by: Narciso Madden M.D. 05/15/2025 1:22 PM Abdomen/Pelvis CT 05/15/25 12:[address] WITH IV CONTRAST CT DOSE: 1465.23 mGy.cm HISTORY: upper abd pain TECHNIQUE: Multiaxial CT images of the abdomen and pelvis were performed following the IV administration of 90 cc of Optiray, A dose lowering technique was utilized adhering to the principles of ALARA. COMPARISON STUDY: 12/04/2022 FINDINGS: ABDOMEN: Stable central liver cyst and stable mild biliary dilatation at the left hepatic lobe. Gallbladder is surgically absent. Spleen, pancreas, and ad renal glands are unremarkable. There is a tiny hiatal hernia. There are a few small cysts at the kidneys, stable. There is no hydronephrosis bilaterally. There are scattered atherosclerotic calcifications. Pelvis: Prostate is enlarged. Urinary bladder is mildly distended. Stable right hemicolectomy. There is diffuse small bowel distention measuring up to 4 cm diameter with transition zone just proximal to the anastomosis. There is no colonic distention. No free fluid, free air, or abscess. No enlarged adenopathy. Osseous structures: There is lower lumbar degenerative disc disease. There are mild degenerative changes of the hips. IMPRESSION: 1. Findings consistent with small bowel obstruction with the transition zone at the distal small bowel just proximal to the right hemicolectomy anastomosis. 2. Otherwise as described. ACT 112: Negative or not required by law. The above report was generated using voice recognition software. It may contain grammatical, syntax or spelling errors. Electronically signed by: Narciso Madden M.D. 05/15/2025 2:27 PM ECG Additional Comments: ECG. Ventricular paced rhythm with PVCs at rate of 90. Code Status & VTE Plan VTE Prophylaxis Plan VTE Prophylaxis will be ordered: Yes
[2025-05-15] MEDS ORDERED: ACETAMINOPHEN 1,000 MG/100 ML VIAL IV PRN (18:12)
[2025-05-15] MEDS ORDERED: NITROGLYCERIN SL 0.4 MG/TAB TAB SL PRN (18:12)
[2025-05-15] MEDS ORDERED: METOPROLOL TARTRATE 1 MG/ML VIAL IV PRN (18:12)
[2025-05-15] MEDS ORDERED: MoRPHine SULFATE 2 MG/ML CARP IV PRN (18:12)
[2025-05-15] MEDS ORDERED: FLUTICASONE PROPIONATE NA SPR 16 GM BTL PRN (18:12)
[2025-05-15] MEDS ORDERED: DEXTROSE 50% 50 ML SYRINGE IV PRN (18:12)
[2025-05-15] MEDS ORDERED: GLUCOSE 10 TAB/TUBE PO PRN (18:12)
[2025-05-15] MEDS ORDERED: GLUCAGON FOR INJ 1 MG VIAL SQ PRN (18:12)
[2025-05-15] MEDS ORDERED: CARBOHYDRATES FOR HYPOGLYCEMIA PO PRN (18:12)
[2025-05-15] MEDS ORDERED: ONDANSETRON INJ 2 MG/ML 2 ML VIAL IV PRN (18:12)
[2025-05-15] MEDS ORDERED: GLUCOSE 40% GEL 15 GM TUBE PO PRN (18:12)
[2025-05-15] MEDS: INSULIN ASPART PER UNIT CHARGE SC SCH (18:35)
[2025-05-15] MEDS: SODIUM CHLORIDE 0.9% 1,000 ML IV SCH (18:35)
[2025-05-15] MEDS: PANTOprazole 40 MG/10 ML SYR IV ONE (18:59)
[2025-05-15] MEDS: ALUMINUM/MAGNESIUM/SIMETH (MAALOX MAX) 30 ML UDC PO STA (18:59)
[2025-05-15 19:02] LABS: INR 1.1 (0.9-1.1); Prothrombin Time 11.6 Seconds (9.0-12.0)
--- NOTE | 2025-05-15 19:26 | Surgery Consultation ---
Date of Consultation May 15, 2025 Assessment & Plan (1) SBO (small bowel obstruction): Patient has been admitted to the medical service. Surgical recommendations are as follows: I suspect the patient's small bowel obstruction is likely in the basis of adhesions from previous surgeries as he has had an open cholecystectomy and an open colon resection Would recommend making the patient n.p.o. Provide IV fluid for hydration As patient has not had any emesis I feel we can hold on placing NG tube at this time. I did discuss with the patient that if any emesis pursues or if his abdominal exam worsens we will need to reconsider the use of this modality and he expresses understanding Will consider advancing the patient's diet beginning with clear liquids when he has return of bowel function and less abdominal distention If the patient's small bowel obstruction does not open up in a reasonable amount of time we may consider obtaining a contrast imaging study but the need for this is yet to be determined At the time of my interview the patient was nontoxic-appearingthat she was normotensive no tachycardia fever. He did not have acute kidney injury, leukocytosis, or an elevated lactic acid level Additional recommendations be forthcoming based on his clinical course as unfolds Supervising Physician Co-Signing Physician Notes pnt d/w JACLYN, labs and imaging reviewed, agree with above. h/o Right hemicolec severo, presented with abd pain. CT reviewed, agree with sbo. plan for non operative management. History of Present Illness Reason for Consultation: Small bowel obstruction Attending Physician: Sang Tolentino MD History of Present Illness This is a 10-year-old male who presented to the emergency department secondary to abdominal discomfort. The patient says that yesterday he had some generalized abdominal discomfort with some abdominal bloating. He says he was able to eat his evening meal but his abdominal discomfort persisted into the morning of 05/15/2025. Patient has had nausea without vomiting. He said he did have a small bowel movement earlier this morning but since that time he has not been passing any flatus or had any additional bowel movements. As noted above he did eat his evening meal on 05/14/2025 which was his most recent oral intake. He does take Eliquis for history of stroke and his most recent dose of this medication was on 05/14/2025 with his p.m. dose. Patient reports that he has had abdominal surgeryshe has had a right hemicolectomy in 1985 as well as a cholecystectomy following that procedure. He says he has at least 1 small bowel obstruction since the surgery is and it was treated successfully in a conservative manner without the need for additional surgery. Since arrival to the hospital he has had labs and imaging which independent reviewed. Patient did have a chest x-ray that showed no evidence of pneumonia. A CT scan of the abdomen pelvis showed the findings were consistent with a small bowel obstructionpatient had diffuse small bowel distention with a transition point near the proximal anastomosis from his previous surgery. There is no evidence of free intraperitoneal air or fluid. Labs include CBC white blood cell count, hemoglobin, hematocrit, and platelet count were normal. Coagulation studies were normal. Chemistry profile showed sodium and potassium as well as the BUN and creatinine were normal. Patient had a lactic acid level that was not elevated at 1.0. There is no elevation of his LFTs or lipase. At the time of my interview he was resting comfortably bed he was no distress Allergies Allergy/AdvReac Type Severity Reaction Status Date / Time Sulfa (Sulfonamide Allergy Mild HIVES Verified 09/19/24 10:08 Antibiotics) Home Medications Medication Instructions Recorded Confirmed Type amlodipine 10 mg tablet 10 mg PO QAM 03/15/19 05/15/25 History cholecalciferol (vitamin D3) 25 1,000 unit PO QAM 03/15/19 05/15/25 History mcg (1,000 unit) tablet (Vitamin D3) cyanocobalamin (vitamin B-12) 1,000 mcg PO QAM 03/15/19 05/15/25 History 1,000 mcg tablet ferrous sulfate 325 mg (65 mg 325 mg PO QAM 03/15/19 05/15/25 History iron) tablet (Iron (ferrous sulfate)) fluticasone propionate 50 2 spray intranasal DAILY PRN 03/15/19 05/15/25 History mcg/actuation nasal Allergy Symptoms spray,suspension (Flonase Allergy Relief) linagliptin 5 mg tablet 5 mg PO QAM 03/15/19 05/15/25 History lisinopril 20 mg tablet 20 mg PO BID 03/15/19 05/15/25 History pantoprazole 40 mg tablet,delayed 40 mg PO QAM 03/15/19 05/15/25 History release simvastatin 20 mg tablet 20 mg PO HS 03/15/19 05/15/25 History metoprolol succinate 25 mg 25 mg PO BID 02/04/20 05/15/25 History tablet,extended release 24 hr trazodone 50 mg tablet 50 mg PO HS 02/04/20 05/15/25 History alendronate 70 mg tablet 70 mg PO WK 12/04/22 05/15/25 History apixaban 5 mg tablet (Eliquis) 5 mg PO BID 12/04/22 05/15/25 History azelastine 137 mcg (0.1 %) nasal 1 spray intranasal AMHS 12/04/22 05/15/25 History spray clobetasol 0.05 % topical ointment 1 applic topical BID PRN leg & 12/04/22 05/15/25 History trunk rash empagliflozin 25 mg tablet 25 mg PO DAILY 12/04/22 05/15/25 History (Jardiance) furosemide 20 mg tablet 0 mg PO DAILY PRN swelling 12/04/22 05/15/25 History glycerin (adult) 1 supp [place] BID PRN constipation #12 12/04/22 05/15/25 Rx ea metformin 500 mg tablet 750 mg PO BIDM 12/04/22 05/15/25 History polyethylene glycol 3350 17 17 g PO QAM 12/04/22 05/15/25 History gram/dose oral powder (Miralax) Patient History Medical History History of colon polyps Diabetes mellitus, type 2 Hearing deficit Hypertension Hyperlipidemia Irregular heart rate prior to pacemaker placement History of bronchitis reason for inhaler Surgical History Status post right partial knee replacement History of left inguinal hernia repair History of bowel resection 1985 History of appendectomy with bowel resection History of colonoscopy History of esophagogastroduodenoscopy (EGD) History of wisdom tooth extraction History of tonsillectomy and adenoidectomy History of phacoemulsification of cataract of both eyes with intraocular lens implantation Family History Brother Family history of diabetes mellitus Mother Family hx colonic polyps Other No family history of adverse response to anesthesia Social History (Reviewed 05/15/25 @ 19:22 by LEÓN Aguirre Smoking Status: Former smoker Smoking End Date: "26 years ago"; Second Hand Exposure: No; Do You Dip or Chew Tobacco: No; Hx Alcohol Use: No Hx Substance Use: No Preferred Language: Welsh Communication Ability: Effective 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 Beliefs That Will Affect Care: None marital status: Current Living Situation: Spouse current occupational status: retired Other Information That Helps Us Care for You: No Feels Safe at Home: Yes Safety Concerns: Feels Safe At This Time Assistive Devices: Cane, Glasses and Hearing Aid - Bilateral Review of Systems Review of Systems: All systems reviewed & are unremarkable except as noted in HPI & below Physical Exam Constitutional: WD/WN, vitals as above Eyes: Wears glasses ENMT: Ears: no hearing impairment and no external ear abnormality Mouth: no oropharynx abnormality Neck: trachea midline Respiratory: normal respiratory effort; no respiratory distress and no labored breathing Cardiovascular: Rate/Rhythm: regular rate and regular rhythm Gastrointestinal (Abdomen): Abdomen is soft with mild distention. There is some slight tympany with percussion. There is minimal pain with palpation at the time of my exam and there is no rebound tenderness or guarding. Musculoskeletal: No calf tenderness Skin: no rashes Neurologic: moves all extremities Psychiatric: A+Ox3, euthymic affect Results & Data Vital Signs (Past 12 Hours) Vital Signs Temp Pulse Pulse Resp BP BP Pulse Ox 05/15/25 18:14 74 16 132/74 92 05/15/25 18:14 05/15/25 18:10 68 14 132/74 93 05/15/25 16:11 77 16 136/89 92 05/15/25 13:09 79 05/15/25 12:48 96 05/15/25 12:48 18 05/15/25 12:16 36.6 C 54 L 17 133/56 L 95 Pulse Ox O2 Del Method O2 Del Method O2 Flow Rate 05/15/25 18:14 Nasal Cannula 2 05/15/25 18:14 92 Room Air 05/15/25 18:10 Room Air 05/15/25 16:11 Room Air 05/15/25 13:09 05/15/25 12:48 Room Air 05/15/25 12:48 05/15/25 12:16 Room Air PG Care Time/CCT Total # of Minutes Spent Total Time Spent with Patient: Total time spent is greater than 50% in coordination of care (as documented) at patient's floor/unit and/or counseling patient: Coding Level of Care Code 85308 INT INP/OBS CARE MIN Diagnoses SBO (small bowel obstruction) K56.609
[2025-05-15] MEDS: Heparin IV Adult Wt-Based Low-Dose *NO* INITIAL Bolus Protocol IV STA (19:36)
[2025-05-15] MEDS: HEPARIN 25000 UNIT/500 ML D5W 25,000 UNITS/500 ML BAG IV SCH (19:42)
[2025-05-15] MEDS: SIMVASTATIN 20 MG TAB PO SCH (21:10)
[2025-05-15] MEDS: AZELASTINE HCL 0.1% NASAL 200 SPRAYS/27,400 MCG BTL SCH (21:10)
[2025-05-15] MEDS: METOPROLOL SUCC 25MG EXT REL TAB PO SCH (21:10)
[2025-05-16 02:32] LABS: ANTI-Xa, UFH(UnfractionatedHep 0.82 IU/ml (0.3-0.7)
[2025-05-16] MEDS ORDERED: Nursing to Pharmacy Communication SCH ×2 (03:45→13:00)
[2025-05-16 05:10] LABS: Appearance Urine Clear (Clear); Bacteria Urine Automated None Seen (None Seen); Cast Urine Automated 0-2 /lpf (0-2); Epithelial Cell Urine Auto 0-2 /hpf (0-2); Glucose Urine UA 3+ (Negative); RBC Urine Automated 0-2 /hpf (0-2); WBC Urine Automated 0-5 /hpf (0-5)
[2025-05-16 06:43] LABS: Hematocrit (blood only) 48.4 % (42.0-52.0); Hemoglobin 16.0 g/dl (14.0-18.0); Immature Granulocytes # (auto) 0.02 K/uL (0.01-0.20); Immature Granulocytes % (auto) 0.3 %; Mean Corpuscular Hemoglobin 30.5 pg (25.0-34.0); Mean Corpuscular Volume 92.4 fL (80.0-100.0); Platelet Count 183 K/uL (130-400); RDW Standard Deviation 46.8 fL (36.4-46.3); Red Blood Count 5.24 M/uL (4.70-6.10); White Blood Count 7.89 K/ul (4.8-10.8)
[2025-05-16 06:59] LABS: Anion Gap 7.0 (3-11); Blood Urea Nitrogen 14.0 mg/dl (6-23); Calcium 8.6 mg/dl (8.6-10.3); Carbon Dioxide 25.0 mmol/L (21-32); Chloride 109.0 mmol/L (98-107); Creatinine Clr Calc Pharmacy 61.7 ml/min; Glucose 126.0 mg/dl (70-99(Fasting)); Magnesium 2.0 mg/dl (1.7-2.4); Potassium 4.3 mmol/L (3.5-5.1); Sodium 141.0 mmol/L (136-145)
[2025-05-16] MEDS ORDERED: ONDANSETRON INJ 2 MG/ML 2 ML VIAL IV PRN (07:44)
--- NOTE | 2025-05-16 08:18 | Surgery Progress Note ---
Date of Service May 16, 2025 Assessment & Plan (1) SBO (small bowel obstruction): Plan: Pt w/ history of R hemicolectomy and cholecystectomy here w/ concern for SBO Pt feels improved overall, abdomen pain improved. no n/v Abdomen soft, minimal discomfort Has been having + BMs Can trial clears and see how he fairs Admission and Anticipated Discharge Date Admission Date: May 15, 2025 Supervising Physician Co-Signing Physician Notes Patient seen examined, labs and imaging reviewed, agree with above. Admitted with small bowel obstruction in setting of prior open cholecystectomy and right hemicolectomy. He feels much better, has passed gas and had multiple loose bowel movements. Minimal abdominal pain. The symptoms he had on arrival are gone. On exam he is afebrile with stable vitals, his abdomen is soft, minimally tender to palpation, nondistended. CT scan personally viewed and interpreted a gree with the assessment of some dilated bowel leading up to a transition point in the pelvis/left lower quadrant. This is proximal to his anastomosis. Resolving SBO, advance to clear liquids, slowly advance diet to low fiber as tolerated. Subjective Patient feeling pretty good. No further nausea/vomiting. A couple twinges of pain overnight but feels much improved. Reports BMs since admission. Physical Exam Physical Exam: awake/alert, no distress Gastrointestinal (Abdomen): Inspection/Auscultation: abdomen not distended Percussion/Palpation: + abdomen tender (mild discomfort of upper/mid abdomen) and abdomen soft Results & Data Vital Signs (Past 12 Hours) Vital Signs Temp Pulse Pulse Resp BP Pulse Ox O2 Del Method 05/16/25 07:48 97.7 F 60 18 105/62 92 Room Air 05/16/25 04:33 98.4 F 83 20 111/61 95 Room Air 05/16/25 00:43 98.4 F 64 20 104/63 92 Room Air 05/15/25 21:33 60 05/15/25 20:54 95 H 05/15/25 20:52 98.1 F 79 18 163/70 H 92 Room Air PG Care Time/CCT Total # of Minutes Spent Total Time Spent with Patient: Total time spent is greater than 50% in coordination of care (as documented) at patient's floor/unit and/or counseling patient: Coding Level of Care Code 19253 SUB INP/OBS CARE 10/29MIN Diagnoses SBO (small bowel obstruction) K56.328
[2025-05-16] MEDS: CHOLECALCIFEROL 25 MCG (1000 UNITS) TAB PO SCH (09:34)
[2025-05-16] MEDS: PANTOprazole 40 MG/10 ML SYR IV SCH (09:35)
[2025-05-16 10:14] LABS: ANTI-Xa, UFH(UnfractionatedHep 0.63 IU/ml (0.3-0.7)
--- NOTE | 2025-05-16 12:00 | Hospitalist Progress Note ---
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 he is being managed for the following: Small bowel obstruction Increased blood lactic acid level: Lactic acid normalized with IV fluid in the ED. Came with abdominal pain and nausea. CAT scan showing small bowel obstruction 2 small BMs today, reports improving BP Gen sx on board, clears today. monitor. will dc ivf if pt tolerating diet well. History of A-fib c/w home metoprolol succinate. Rate controlled. Will hold Eliquis and place on IV heparin unless sure of no surgical indication. IV Lopressor as needed Will monitor History of heart failure with preserved ejection fraction: Holding Lasix until diet fully resumed. Getting fluids. Will monitor for volume overload History of CVA Left-sided weakness On statin Holding Eliquis and placing on IV heparin for now Hypertension: Continue home Lisinopril, amlodipine and metoprolol succinate. We will monitor Diabetes: Hold metformin and linagliptin and Jardiance. Sliding scale. We will monitor Hyperlipidemia: c/w home Statin. GERD: IV Protonix DVT prophylaxis: IV heparin Disposition: Med/telemetry Full code Admission and Anticipated Discharge Date Admission Date: May 15, 2025 Subjective Patient feeling pretty good and did move 2 small BMs in am, reports BP improving. No further nausea/vomiting. Physical Exam Physical Exam: General- Not in distress Head- atraumatic Eyes- PERRL. ENT- oropharynx clear Neck- supple, no JVD. Lungs- clear to auscultation no wheezing or crackles Heart- regular rhythm; no murmur, no gallop. Abdomen- +ve bowel sounds, soft, non tender, no distension Extremities- no pretibial edema, no erythema seen Neuro- alert, oriented PERRL, no facial palsy; no dysarthria; moves extremities Results & Data Results & Data Vital Signs (Past 12 Hours) Vital Signs Temp Pulse Resp BP BP Pulse Ox O2 Del Method 05/16/25 11:45 36.4 C L 74 18 132/67 92 Room Air 05/16/25 07:48 36.5 C 60 18 105/62 92 Room Air 05/16/25 04:33 36.9 C 83 20 111/61 95 Room Air 05/16/25 00:43 36.9 C 64 20 104/63 92 Room Air
--- NOTE | 2025-05-16 13:09 | Electrocardiogram Report ---
Test Reason : Blood Pressure : */* mmHG Vent. Rate : 90 BPM Atrial Rate : 96 BPM P-R Int : * ms QRS Dur : 152 ms QT Int : 410 ms P-R-T Axes : * -78 101 degrees QTcB Int : 501 ms Ventricular-paced rhythm with frequent , and consecutive Premature ventricular complexes Abnormal ECG When compared with ECG of 05-Feb-2020 19:14, Premature ventricular complexes are now Present Vent. rate has increased by 17 bpm Confirmed by Abhijit Rodriguez ([id number]) on 05/16/2025 1:09:37 PM Referred By: REFERRED SELF Confirmed By: Abhijit Rodriguez
[2025-05-16 17:40] LABS: ANTI-Xa, UFH(UnfractionatedHep 0.29 IU/ml (0.3-0.7)
[2025-05-16] MEDS: INSULIN ASPART PER UNIT CHARGE SC SCH (17:58)
--- NOTE | 2025-05-17 00:16 | Communication Note ---
Date of Service: May 17, 2025 Made aware by RN of SBP 90s. Heart rate 60s Patient comfortable. AP Hypotension Continue IVF Decrease maintenance beta-bon dose. Hold lisinopril for now
[2025-05-17 00:30] LABS: ANTI-Xa, UFH(UnfractionatedHep 0.36 IU/ml (0.3-0.7)
[2025-05-17 07:42] LABS: Hematocrit (blood only) 45.3 % (42.0-52.0); Hemoglobin 15.1 g/dl (14.0-18.0); Mean Corpuscular Hemoglobin 30.8 pg (25.0-34.0); Mean Corpuscular Volume 92.3 fL (80.0-100.0); Platelet Count 163 K/uL (130-400); RDW Standard Deviation 47.0 fL (36.4-46.3); Red Blood Count 4.91 M/uL (4.70-6.10); White Blood Count 5.90 K/ul (4.8-10.8)
[2025-05-17] MEDS: METOPROLOL SUCC 25MG EXT REL TAB PO SCH ×2 (08:00→09:45)
[2025-05-17 08:11] LABS: ANTI-Xa, UFH(UnfractionatedHep 0.37 IU/ml (0.3-0.7); Anion Gap 5.0 (3-11); Blood Urea Nitrogen 11.0 mg/dl (6-23); Calcium 8.1 mg/dl (8.6-10.3); Carbon Dioxide 27.0 mmol/L (21-32); Chloride 109.0 mmol/L (98-107); Creatinine Clr Calc Pharmacy 63.4 ml/min; Glucose 138.0 mg/dl (70-99(Fasting)); Potassium 4.0 mmol/L (3.5-5.1); Sodium 141.0 mmol/L (136-145)
--- NOTE | 2025-05-17 10:29 | Surgery Progress Note ---
Date of Service May 17, 2025 Assessment & Plan (1) SBO (small bowel obstruction): Plan: pt w/ history of R hemicolectomy and cholecystectomy here w/ concern for SBO Pt feels improved overall, abdomen pain improved. no n/v Abdomen soft, minimal discomfort. + bowel function noted Will trial fulls this AM and see how he fairs, if continues to do well consider low fiber later today Admission and Anticipated Discharge Date Admission Date: May 15, 2025 Subjective Patient doing alright. Tolerating clears without nausea/vomiting. Report some gas discomfort but is tolerable. + flatus & BMs noted Physical Exam Physical Exam: awake, alert no distress Gastrointestinal (Abdomen): Percussion/Palpation: abdomen soft; abdomen nontender Results & Data Vital Signs (Past 12 Hours) Vital Signs Temp Pulse Pulse Resp BP BP Pulse Ox 05/17/25 08:00 97.5 F L 90 20 126/73 92 05/17/25 08:00 60 120/66 05/17/25 06:45 60 05/17/25 03:54 98.2 F 69 20 99/64 L 92 05/16/25 23:51 98.2 F 65 20 93/55 L 91 O2 Del Method 05/17/25 08:00 Room Air 05/17/25 08:00 05/17/25 06:45 05/17/25 03:54 Room Air 05/16/25 23:51 Room Air PG Care Time/CCT Total # of Minutes Spent Total Time Spent with Patient: Total time spent is greater than 50% in coordination of care (as documented) at patient's floor/unit and/or counseling patient: Coding Level of Care Code 81965 SUB INP/OBS CARE 10/29MIN Diagnoses SBO (small bowel obstruction) K56.609
--- NOTE | 2025-05-17 11:43 | Hospitalist Progress Note ---
Date of Service May 17, 2025 Assessment & Plan (1) SBO (small bowel obstruction): Plan: 89 yo male with past medical history significant for type 2 diabetes, CKD stage III, hyperlipidemia, third-degree heart block status post pacemaker, paroxysmal atrial fibrillation, hypertension, GERD, osteoporosis, history of hemiplegia/ hemiparesis following CVA on left side ambulates with cane who lives at home with his comes because of abdominal pain and nausea and found to have small bowel obstruction. he is being managed for the following: Small bowel obstruction Increased blood lactic acid level: Lactic acid normalized with IV fluid in the ED. Came with abdominal pain and nausea. CAT scan showing small bowel obstruction 2 small BMs 05/16, reports improving BP Gen sx on board, full liq diet today. monitor. History of A-fib c/w home metoprolol succinate. Rate controlled. Will hold Eliquis and place on IV heparin unless sure of no surgical indication. IV Lopressor as needed Will monitor History of heart failure with preserved ejection fraction: Holding Lasix until diet fully resumed. Getting fluids. Will monitor for volume overload History of CVA Left-sided weakness On statin Holding Eliquis and placing on IV heparin for now Hypertension: Continue home Lisinopril, amlodipine and metoprolol succinate. We will monitor Diabetes: Hold metformin and linagliptin and Jardiance. Sliding scale. We will monitor Hyperlipidemia: c/w home Statin. GERD: IV Protonix DVT prophylaxis: IV heparin Disposition: Med/telemetry Full code Dispo: possible dc charisse w/ gen sx clearance, resume pt's home eliquis once deemed stable. now on hep drip. Admission and Anticipated Discharge Date Admission Date: May 15, 2025 Subjective Patient feeling pretty good and did move 2 small BMs yesterday, now moving gas, tolerating clears, no abd pain. No further nausea/vomiting. overnight BP was low, lisinopril on hold. Physical Exam Physical Exam: General- Not in distress Head- atraumatic Eyes- PERRL. ENT- oropharynx clear Neck- supple, no JVD. Lungs- clear to auscultation no wheezing or crackles Heart- regular rhythm; no murmur, no gallop. Abdomen- +ve bowel sounds, soft, non tender, no distension Extremities- no pretibial edema, no erythema seen Neuro- alert, oriented PERRL, no facial palsy; no dysarthria; moves extremities Results & Data Results & Data Vital Signs (Past 12 Hours) Vital Signs Temp Pulse Pulse Resp BP BP Pulse Ox 05/17/25 08:00 36.4 C L 90 20 126/73 92 05/17/25 08:00 60 120/66 05/17/25 06:45 60 05/17/25 03:54 36.8 C 69 20 99/64 L 92 05/16/25 23:51 36.8 C 65 20 93/55 L 91 O2 Del Method 05/17/25 08:00 Room Air 05/17/25 08:00 05/17/25 06:45 05/17/25 03:54 Room Air 05/16/25 23:51 Room Air
[2025-05-17 15:51] VITALS: RESP 18
[2025-05-17] MEDS ORDERED: Nursing to Pharmacy Communication SCH (17:45)
[2025-05-18 07:57] VITALS: TEMP 98.1; O2SAT 94
[2025-05-18 08:31] VITALS: PULSE 65
[2025-05-18 08:32] LABS: ANTI-Xa, UFH(UnfractionatedHep 0.23 IU/ml (0.3-0.7)
[2025-05-18 08:38] LABS: Anion Gap 6.0 (3-11); Blood Urea Nitrogen 8.0 mg/dl (6-23); Calcium 8.5 mg/dl (8.6-10.3); Carbon Dioxide 25.0 mmol/L (21-32); Chloride 109.0 mmol/L (98-107); Creatinine Clr Calc Pharmacy 65.4 ml/min; Glucose 129.0 mg/dl (70-99(Fasting)); Magnesium 1.9 mg/dl (1.7-2.4); Potassium 3.9 mmol/L (3.5-5.1); Sodium 140.0 mmol/L (136-145)
--- NOTE | 2025-05-18 08:52 | Surgery Progress Note ---
Date of Service May 18, 2025 Assessment & Plan (1) SBO (small bowel obstruction): Plan: pt here with concern for SBO that is resolving he denies abdominal pain/n/v abdomen soft, non distended, nontender tolerating a low fiber diet without worsening symptoms may be discharged from our POV and resume his home medications Admission and Anticipated Discharge Date Admission Date: May 15, 2025 Supervising Physician Co-Signing Physician Notes pnt d/c'ed prior to rounds, d/w lux prior to d/c. resolved sbo, tolerated diet and +bowel function, no recurrence of symptoms. d/c to home. Subjective The patient is feeling well. Tolerating a diet. No abdominal pain,n/v. + flatus and BM Physical Exam Physical Exam: awake/alert, no distress Respiratory: normal respiratory effort Gastrointestinal (Abdomen): Percussion/Palpation: abdomen soft; abdomen nontender Results & Data Vital Signs (Past 12 Hours) Vital Signs Temp Pulse Pulse Resp BP Pulse Ox O2 Del Method 05/18/25 08:30 65 05/18/25 07:57 98.1 F 57 L 18 127/72 94 Room Air 05/18/25 06:45 68 05/18/25 03:46 97.9 F 66 18 102/59 L 90 Room Air 05/17/25 23:38 Room Air 05/17/25 22:45 98.8 F 58 L 18 132/70 92 Room Air 05/17/25 22:15 66 PG Care Time/CCT Total # of Minutes Spent Total Time Spent with Patient: Total time spent is greater than 50% in coordination of care (as documented) at patient's floor/unit and/or counseling patient: Coding Level of Care Code 09276 SUB INP/OBS CARE 10/29MIN Diagnoses SBO (small bowel obstruction) K56.609
[2025-05-18] MEDS: APIXABAN 5 MG TABLET PO SCH (09:40)
[2025-05-18 09:56] VITALS: BP 117/70
--- NOTE | 2025-05-18 10:55 | Discharge Summary ---
Date of Service May 18, 2025 Admission HPI Per Admitting Provider 89-year-old male with past medical history significant for type 2 diabetes, CKD stage III, hyperlipidemia, third-degree heart block status post pacemaker, paroxysmal atrial fibrillation, hypertension, GERD, osteoporosis, history of hemiplegia/ hemiparesis following CVA on left side ambulates with cane who lives at home with his comes because of abdominal pain and nausea and found to have small bowel obstruction. Patient states yesterday he was having some abdominal discomfort. He went to his daughter's place and had dinner. In the morning he woke up at 4 AM with worsening abdominal pain which prompted him to come to the ER. Currently also having nausea. Denies any vomiting. Had a small bowel movement in the morning. Currently not passing gas. No headache or dizziness. Vision is okay. Somewhat hard of hearing. No runny nose. Has some cough and attributes to his sinuses. No difficulty swallowing. No chest pain or shortness of breath. Micturating okay. Hemodynamics are okay. Past medical history. As mentioned above. Past surgical history. Colonoscopy. Dental surgery. EGD. Status post pacemaker. 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 Cataracts. Cholecystectomy. Open left repair of inguinal hernia in 2012 with plug and patch mesh. Social history. . Quit smoking 1989. Smoked 1.5 pack a day for 30 years. No alcohol use. No drug use. Family history. Sister has rheumatoid arthritis. Father had heart disorder. Stroke. Aneurysm. Mother had heart disorder. Brother had hypertension. Admission Exam Per Admitting Provider General- Not in distress Head- atraumatic Eyes- PERRL. ENT- oropharynx clear Neck- supple, no JVD. Lungs- clear to auscultation no wheezing or crackles Heart- regular rhythm; no murmur, no gallop. Abdomen-sluggish bowel sounds, soft, mild epigastric tenderness, no distension Extremities- no pretibial edema, no erythema seen Neuro- alert, oriented PERRL, no facial palsy; no dysarthria; moves extremities Principal Diagnosis Small bowel obstruction Discharge Exam Constitutional: WD/WN, vitals as above, NAD, sitting up in bed, pleasant, conversing easily Respiratory: normal respiratory effort, lungs clear to auscultation, no wheeze, rales, rhonchi. Normal insp/exp effort, no accessory muscle use Cardiovascular: RRR, no murmur, no edema Vessels: no JVD or carotid bruit Chest: normal inspection of chest Abdomen: normal bowel sounds, soft, nontender, no hepatosplenomegaly Musculoskeletal: no cyanosis or clubbing, extremities motor strength 5/5 Skin: no rashes, warm and dry normal turgor Neurologic: PERRL, EOMI, accommodation nl, no face palsy, no dysarthria CN's II- XI intact bilaterally and moves all extremities Psychiatric: A+Ox3, euthymic affect Discharge Data Allergies Allergy/AdvReac Type Severity Reaction Status Date / Time Sulfa (Sulfonamide Allergy Mild HIVES Verified 09/19/24 10:08 Antibiotics) Consultations 05/15/25 14:52 ED Decision to Admit Stat 05/16/25 08:00 Consult General Surgery Routine Ordered Studies 05/15/25 12:33 CT Abd and Pelvis [CT abd pelvis IV con only] Stat Hospital Course (1) SBO (small bowel obstruction): 89 yo male with past medical history significant for type 2 diabetes, CKD stage III, hyperlipidemia, third-degree heart block status post pacemaker, paroxysmal atrial fibrillation, hypertension, GERD, osteoporosis, history of hemiplegia/ hemiparesis following CVA on left side ambulates with cane who lives at home with his comes because of abdominal pain and nausea and found to have small bowel obstruction. Small bowel obstruction Patient presented to the hospital with abdominal pain, nausea. CT abdomen and pelvis on admission was suggestive of small bowel obstruction. Patient was admitted to the medical floor; was started on bowel rest, IV fluids and pain control. Surgery was consulted for comanagement. Patient reported gradual imp rovement in his symptoms and was able to tolerate clear liquid diet which was advanced gradually to low fiber diet. Patient was having regular bowel movement with no abdominal pain or discomfort at the time of the discharge. Patient was recommended to continue low fiber diet at discharge. Patient to follow-up with PCP. Please note the above document was generated using voice recognition software. It may contain grammatical, syntax or spelling errors. Any formal questions or concerns about the content, text or information contained within the body of this dictation should be directly addressed to the provider for clarification Total Time Total Time Spent Total Time Spent (In Minutes): 45 Total Time Includes: Examination of the Patient, Discharge Planning, Medication Reconciliation, Communication With Other Providers and Other Discharge Plan Discharge Items Patient Disposition: Home - Self-Care Reason For Visit: SBO, HX OF A .FIB AND CHF Discharge Diagnosis: Small bowel obstruction Condition on Discharge: Fair Activity: Resume your previous activity Non-emergency contact: Primary Care Provider Call non-emergency contact if: you have any medication questions and your symptoms worsen Follow-up/Referrals: Breezy Crane MD [Primary Care Provider] - (Date & Time 05/22/2025 12:00 PM Provider: Breezy Crane III, MD [facility]) Diet: Low Fiber Addtl Attending Provider Instructions: You are admitted to the hospital with a small bowel obstruction. Please follow a low fiber diet as instructed. Follow-up with your primary care doctor as scheduled Pending Studies at Discharge: No Stand-Alone Forms: My [employer], Smoking Cessation Medications and DC Order Prescriptions: Continued ferrous sulfate [Iron (ferrous sulfate)] 325 mg (65 mg iron) Tablet 325 mg PO QAM Patient Comments: Unable to verify OTC meds at this date/time. - 05/15/25 lisinopril 20 mg Tablet 20 mg PO BID Patient Comments: Last filled 01/24/25 x90 day supply, Unable to verify if pt still taking. - 05/15/25 cyanocobalamin (vitamin B-12) 1,000 mcg Tablet 1,000 mcg PO QAM Patient Comments: Unable to verify OTC meds at this date/time. - 05/15/25 amlodipine 10 mg Tablet 10 mg PO QAM Patient Comments: Last filled 01/31/25 x90 day supply, Unable to verify if pt still taking. - 05/15/25 pantoprazole 40 mg Tablet,Delayed Release (Dr/Ec) 40 mg PO QAM simvastatin 20 mg Tablet 20 mg PO HS fluticasone propionate [Flonase Allergy Relief] 50 mcg/actuation Mcewen,Suspension 2 spray INTRANASAL DAILY PRN (Reason: Allergy Symptoms) Patient Comments: Unable to verify OTC meds at this date/time. - 05/15/25 cholecalciferol (vitamin D3) [Vitamin D3] 1,000 unit Tablet 1,000 unit PO QAM Patient Comments: Unable to verify OTC meds at this date/time. - 05/15/25 linagliptin 5 mg Tablet 5 mg PO QAM trazodone 50 mg tablet 50 mg PO HS metoprolol succinate 25 mg tablet extended release 24 hr 25 mg PO BID alendronate 70 mg tablet 70 mg PO WK metformin 500 mg tablet 750 mg PO BIDM Patient Comments: Last filled 01/31/25 x90 day supply, Unable to verify if pt still taking. - 05/15/25 furosemide 20 mg tablet 0 mg PO DAILY PRN (Reason: swelling) Patient Comments: Per pharmacy, originally filled for 20mg by mouth bid 09/2024 x90 day. Last verified as 20mg once daily as needed. Unable to verify how pt currently takes medication. 05/15/25 Jardiance 25 mg tablet 25 mg PO DAILY polyethylene glycol 3350 [Miralax] 17 gram/dose Powder 17 g PO QAM Patient Comments: Unable to verify OTC meds at this date/time. - 05/15/25 Eliquis 5 mg tablet 5 mg PO BID azelastine 137 mcg (0.1 %) aerosol,spray 1 spray INTRANASAL [facility] clobetasol 0.05 % ointment 1 applic TOPICAL BID PRN (Reason: leg & trunk rash) glycerin (adult) Suppository 1 supp [place] BID PRN (Reason: constipation) Qty: 12 0RF Patient Comments: Unable to verify OTC meds at this date/time. - 05/15/25 Discharge Orders: Discharge Order (Routine); Ordered 05/18/25 Ordered By: Sam Doan/Other Patient Handouts: Low-Fiber Diet Admission Data Admit Date/Time: 05/15/25 15:50 Attending Provider: Sam Arora Admit Provider: Sang Tolentino Primary Care Provider: Breezy Crane Other Providers: Sang Tolentino; Narciso Deleon; IRB Approved Study,[place] Other Interventions: Discharge Summary Assessment (RN) Last Done: 05/18/25 09:55
== END 2025-05-18 10:29 | disposition home or self-care (01) | DRG 389 ==
LOC: ED 11:47 → EDINP 15:50 → SUATTDRO 15:50 → 2N 18:12